=== PATIENT | male | born 1970 | race Caucasian/White ===

== ENCOUNTER 2016-09-23 10:17 | Inpatient (IN) | payer BC ==
[~2016-09-23] VITALS: Ht 175.3 cm; Wt 89.1 kg
[~2016-09-23 10:17] MED LIST: AMOX875T PO; FLUT1SPR9 EACH NARE
[2016-09-23 10:39] VITALS: BP 112/64; PULSE 51; RESP 16; TEMP 97.9; O2SAT 96
[2016-09-23 11:11] VITALS: BP 112/64; PULSE 51; RESP 16; TEMP 97.9; O2SAT 96
[2016-09-23] MEDS ORDERED: LORazepam 2 MG/ML VIAL IV PUSH ONE (11:15)
--- NOTE | 2016-09-23 11:31 | PD ---
HPI Chief Complaint: Anxiety Time Seen by Provider: 10:53 Travel History International Travel<30 days: No Contact w/Intl Traveler<30days: No Traveled to known affect area: No History of Present Illness HPI This is a 46-year-old male who has a history of anxiety who presents to the emergency department reporting that he has been having trouble controlling his emotions lately. 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 He feels like he is in a crisis. He says his body cramps up when he feels angry, and he's been having intermittent loose stools. He says he feels like he is going into panic episodes. 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 He has been smoking marijuana intermittently to treat the symptoms and it helps some. When asked if he is having thoughts of hurting other people or himself, he says he's worried because he gets very distracted and is concerned about his ability to drive. He also fell there a ladder the other day when he felt like he wasn't paying attention and injured his right leg. [facility] Past Medical History Anxiety: Yes Depression: Yes Diminished Hearing: No Influenza Vaccination: No Past Surgical History Tonsillectomy: Yes Other Surgery: Yes (Hernia) Social History Alcohol Use: Yes (Rarely) Tobacco Use: Yes (1/2 PPD) Substance Use: No Allergies-Medications (Allergen,Severity, Reaction): Coded Allergies: No Known Allergies (Unverified , 09/23/16) Reported Meds & Prescriptions Reported Meds & Active Scripts Active No Active Prescriptions or Reported Medications Review of Systems Except as stated in HPI: all other systems reviewed are Neg Physical Exam Narrative GENERAL:Well appearing, no acute distress SKIN: Ecchymoses on the right thigh HEAD: Atraumatic. Normocephalic. EYES: Pupils equal and round. No injection or drainage. ENT: Moist mucous membranes NECK: Trachea midline. CARDIOVASCULAR: Regular rate and rhythm. No murmur appreciated. RESPIRATORY: Clear to auscultation. Breath sounds equal bilaterally. GASTROINTESTINAL: Abdomen soft, non-tender, nondistended. MUSCULOSKELETAL: No obvious deformities. NEUROLOGICAL: Awake and alert. No obvious cranial nerve deficits. Moving all extremities. PSYCHIATRIC: Anxious appearing, preserved insight and judgment, no thoughts of hurting himself or others. Data Data Last Documented VS Vital Signs Date Time Temp Pulse Resp B/P Pulse Ox O2 Delivery O2 Flow Rate FiO2 09/23/16 12:53 52 16 99 Room Air 09/23/16 11:11 97.9 112/64 Orders Complete Blood Count With Diff (09/23/16 11:14) Comprehensive Metabolic Panel (09/23/16 11:14) Alcohol (Ethanol) (09/23/16 11:14) Drug Screen, Random Urine (09/23/16 11:14) ^ Insert Iv (09/23/16 11:14) Lorazepam Inj (Ativan Inj) (09/23/16 11:15) Thyroid Stimulating Hormone (09/23/16 12:03) Labs Laboratory Tests Test 09/23/16 11:50 White Blood Count 6.9 TH/MM3 Red Blood Count 4.24 MIL/MM3 Hemoglobin 14.2 GM/DL Hematocrit 39.6 % Mean Corpuscular Volume 93.5 FL Mean Corpuscular Hemoglobin 33.6 PG Mean Corpuscular Hemoglobin 35.9 % Concent Red Cell Distribution Width 12.4 % Platelet Count 195 TH/MM3 Mean Platelet Volume 8.3 FL Neutrophils (%) (Auto) 62.4 % Lymphocytes (%) (Auto) 24.1 % Monocytes (%) (Auto) 8.9 % Eosinophils (%) (Auto) 3.2 % Basophils (%) (Auto) 1.4 % Neutrophils # (Auto) 4.3 TH/MM3 Lymphocytes # (Auto) 1.7 TH/MM3 Monocytes # (Auto) 0.6 TH/MM3 Eosinophils # (Auto) 0.2 TH/MM3 Basophils # (Auto) 0.1 TH/MM3 CBC Comment AUTO DIFF Differential Comment AUTO DIFF CONFIRMED Platelet Estimate NORMAL Platelet Morphology Comment NORMAL Sodium Level 142 MEQ/L Potassium Level 4.0 MEQ/L Chloride Level 110 MEQ/L Carbon Dioxide Level 24.4 MEQ/L Anion Gap 8 MEQ/L Blood Urea Nitrogen 18 MG/DL Creatinine 1.20 MG/DL Estimat Glomerular Filtration 65 ML/MIN Rate Random Glucose 96 MG/DL Calcium Level 8.0 MG/DL Total Bilirubin 1.6 MG/DL Aspartate Amino Transf 17 U/L (AST/SGOT) Alanine Aminotransferase 40 U/L (ALT/SGPT) Alkaline Phosphatase 63 U/L Total Protein 6.6 GM/DL Albumin 3.7 GM/DL Ethyl Alcohol Level LESS THAN 3 MG/DL MDM Medical Decision Making Medical Screen Exam Complete: Yes Emergency Medical Condition: Yes Interpretation(s) Afebrile, bradycardic, normotensive No leukocytosis Total bilirubin is 1.6 otherwise labs are reassuring Differential Diagnosis Anxiety, panic attack, depression, bipolar disorder Narrative Course This is a 46-year-old male who presents to the emergency department with increasing anxiety describing himself as a crisis. He says he is having anger management issues and he feels like he is going to explode. He is requesting psychiatric evaluation. He says he used to be followed by a psychiatrist but had to discontinue this because he came down to [place] and wasn't able to be on medication in the setting of his profession. Labs are obtained which are reassuring. I had a conversation with the patient regarding whether or not he felt he was a harm to himself or others and he says he is not, he just really wants to be evaluated. I think is appropriate for voluntary psychiatric evaluation. Scripts No Active Prescriptions or Reported Meds Yue Arauz MD Sep 23, 2016 11:31
[2016-09-23 12:05] LABS: AUTOMATED NEUTROPHIL # 4.3 TH/MM3 (1.8-7.7); BASOPHIL # 0.1 TH/MM3 (0-0.2); BASOPHIL % 1.4 % (0.0-2.0); EOSINOPHIL # 0.2 TH/MM3 (0-0.4); EOSINOPHIL % 3.2 % (0.0-4.0); HEMATOCRIT 39.6 % (39.0-51.0); LYMPH % 24.1 % (9.0-44.0); LYMPHOCYTE # 1.7 TH/MM3 (1.0-4.8); MEAN CELL VOLUME 93.5 FL (80.0-100.0); MEAN CORPUSCULAR HEMOGLOBIN 33.6 PG (27.0-34.0); MEAN CORPUSCULAR HGB CONC 35.9 % (32.0-36.0); MONO % 8.9 % (0.0-8.0); NEUT % 62.4 % (16.0-70.0); PLATELET COUNT 195 TH/MM3 (150-450); RED BLOOD COUNT 4.24 MIL/MM3 (4.50-5.90); RED CELL DISTRIBUTION WIDTH 12.4 % (11.6-17.2); WHITE BLOOD COUNT 6.9 TH/MM3 (4.0-11.0)
[2016-09-23 12:09] LABS: HEMO FLAGS AUTO DIFF
[2016-09-23 12:12] LABS: CHLORIDE 110 MEQ/L (98-107); SODIUM (NA) 142 MEQ/L (136-145)
[2016-09-23 12:16] LABS: ANION GAP 8 MEQ/L (5-15); BICARBONATE 24.4 MEQ/L (21.0-32.0); BLOOD UREA NITROGEN 18 MG/DL (7-18)
[2016-09-23 12:19] LABS: ALT (GPT) 40 U/L (12-78); AST (GOT) 17 U/L (15-37); GLOMERULAR FILTRATION RATE 65 ML/MIN (>89)
[2016-09-23 12:21] LABS: TOTAL BILIRUBIN ADULT 1.6 MG/DL (0.2-1.0)
[2016-09-23 12:22] LABS: ALKALINE PHOSPHATASE 63 U/L (45-117)
[2016-09-23 12:49] LABS: PLATELET ESTIMATE SMEAR NORMAL (NORMAL); PLATELET MORPHOLOGY NORMAL (NORMAL)
[2016-09-23 12:50] LABS: SCAN/DIFF AUTO DIFF CONFIRMED
[2016-09-23 12:53] VITALS: PULSE 52; RESP 16; O2SAT 99
[2016-09-23 13:16] VITALS: PULSE 62; RESP 16; O2SAT 100
[2016-09-23] MEDS ORDERED: SODIUM CHLOR 0.9% 1000 ML INJ 1,000 ML IV ONE (14:00)
[2016-09-23 14:31] LABS: AMPHETAMINE, URINE NEG (NEG); COCAINE, URINE NEG (NEG)
[2016-09-23 14:38] LABS: BARBITURATES, URINE NEG (NEG)
[2016-09-23 15:31] VITALS: BP 123/69; PULSE 50; RESP 16; TEMP 97.8; O2SAT 99
--- NOTE | 2016-09-23 19:10 | PD ---
History of Present Illness Chief Complaint: Anxiety Time Seen by Provider: 18:00 Travel History International Travel<30 Days: No Contact w/Intl Traveler<30days: No Known affected area: No Legal Status Legal Status: Voluntary History of Present Illness: History of Present Illness HPI This is a 46-year-old male with a reported history of depression who presents to the emergency department on a voluntary basis requesting a psychiatric evaluation. Patient reports that he has been under a lot of stress at work and that " I fucking work 70 hours per week". He also reports that since January after the of his grandson he has been experiencing increase in symptoms including anxiety, loosing his focus and attention, having a lot of thoughts in his head " It feels like 10 voices talking at the same time", irritability, anger outbursts, poor sleep. He reports that the only thing that helps him is smoking marijuana which he has been doing on a daily basis. He attributes a fall he had yesterday to his high level of distraction. 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 . EMR is reviewed. No previous contact with [facility] psychiatry. Current toxicology is positive for cannabinoids. Patient is seen in J pod. Awake alert and oriented. His mood is irritable. Exhibits poor frustration tolerance. Speech is clear and normal tone and rate. there is no indication that he is responding to internal stimuli. No suicidal or homicidal ideation intent or plan. He makes it a point to tell me several times that he does not feel safe " driving out there the way I am feeling. I am either going to get hurt or hurt someone else". He is requesting to be placed back on medication at this time. he last took psychiatric medication 3 years ago including trazodone, Wellbutrin and an unknown antipsychotic medication. . PFSH Past Medical History Anxiety: Yes Depression: Yes Diminished Hearing: No Influenza Vaccination: No Past Surgical History Tonsillectomy: Yes Other Surgery: Yes (Hernia) Psychiatric History Psychiatric History Hx Psychiatric Treatment: [facility] [id number] in the [employer] for sucidal gesture by cutting his arm. He was hospitalized in 2007 after a reported overdose on trazodone and alcohol. History of Inpatient Treatment: Yes Guns or firearms in home: No Social History male. lives with . 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 Hx Alcohol Use: Yes (Rarely) Hx Tobacco Use: Yes (1/2 PPD) Hx Substance Use: Yes Substance Use Type: Marijuana Hx of Substance Use Treatment: No Family Psychiatric History None reported Allergies-Medications (Allergen,Severity, Reaction): Coded Allergies: No Known Allergies (Unverified , 09/23/16) Reported Meds & Prescriptions Reported Meds & Active Scripts Active No Active Prescriptions or Reported Medications Review of Systems Except as stated in HPI: all other systems reviewed are Neg Psychiatric: COMPLAINS OF: Anxiety, Depression Exam Alert: Yes [place]: Person (ox4) Mood: Angry Affect: Appropriate Speech: Clear, Logical Eye Contact: Indirect Memory Intact: Comment (no impairmetn) Hallucinations: Other (neagtive) Delusions: No Suicidal: Ideation (denies any) Homicidal: Ideation (deneis any) Insight/Judgement Poor. Poor MDM Medical Decision Making Medical Record Reviewed: Yes Assessment/Plan 46 year old male with history of depression , 2 previous suicide attempts, last treated 3 years ago who reports increase in symptoms since January of last year when his grandson . He is requesting to be placed back on medication and stresses to this senior technical writer that he feel unsafe to function in his work and is fearful he may harm himself or harm someone else as a result of his unsafe driving. at this time the patient is referred for inpatient hospitalization for further evaluation, initiation of medication. Orders Complete Blood Count With Diff (09/23/16 11:14) Comprehensive Metabolic Panel (09/23/16 11:14) Alcohol (Ethanol) (09/23/16 11:14) Drug Screen, Random Urine (09/23/16 11:14) ^ Insert Iv (09/23/16 11:14) Lorazepam Inj (Ativan Inj) (09/23/16 11:15) Thyroid Stimulating Hormone (09/23/16 12:03) Psych Screen (09/23/16 13:20) Sodium Chlor 0.9% 1000 Ml Inj (Ns 1000 M (09/23/16 14:00) Diet Regular Basic (09/23/16 Dinner) Results Vital Signs Date Time Temp Pulse Resp B/P Pulse Ox O2 Delivery O2 Flow Rate FiO2 09/23/16 15:31 97.8 50 16 123/69 99 Room Air 09/23/16 13:16 62 16 100 Room Air 09/23/16 12:53 52 16 99 Room Air 09/23/16 11:17 51 16 09/23/16 11:11 97.9 51 16 112/64 96 09/23/16 10:39 97.9 51 16 112/64 96 Room Air Laboratory Tests Test 09/23/16 09/23/16 11:50 14:00 White Blood Count 6.9 Red Blood Count 4.24 Hemoglobin 14.2 Hematocrit 39.6 Mean Corpuscular Volume 93.5 Mean Corpuscular Hemoglobin 33.6 Mean Corpuscular Hemoglobin 35.9 Concent Red Cell Distribution Width 12.4 Platelet Count 195 Mean Platelet Volume 8.3 Neutrophils (%) (Auto) 62.4 Lymphocytes (%) (Auto) 24.1 Monocytes (%) (Auto) 8.9 Eosinophils (%) (Auto) 3.2 Basophils (%) (Auto) 1.4 Neutrophils # (Auto) 4.3 Lymphocytes # (Auto) 1.7 Monocytes # (Auto) 0.6 Eosinophils # (Auto) 0.2 Basophils # (Auto) 0.1 CBC Comment AUTO DIFF Differential Comment AUTO DIFF CONFIRMED Platelet Estimate NORMAL Platelet Morphology Comment NORMAL Sodium Level 142 Potassium Level 4.0 Chloride Level 110 Carbon Dioxide Level 24.4 Anion Gap 8 Blood Urea Nitrogen 18 Creatinine 1.20 Estimat Glomerular Filtration 65 Rate Random Glucose 96 Calcium Level 8.0 Total Bilirubin 1.6 Aspartate Amino Transf 17 (AST/SGOT) Alanine Aminotransferase 40 (ALT/SGPT) Alkaline Phosphatase 63 Total Protein 6.6 Albumin 3.7 Thyroid Stimulating Hormone 0.744 3rd Gen Ethyl Alcohol Level LESS THAN 3 Urine Opiates Screen NEG Urine Barbiturates Screen NEG Urine Amphetamines Screen NEG Urine Benzodiazepines Screen NEG Urine Cocaine Screen NEG Urine Cannabinoids Screen POS Diagnosis Primary Impression: Depression Admitting Information Admitting Physician Requests: Admit (Dr. merida) Prescriptions No Active Prescriptions or Reported Meds Problem Qualifiers Primary Impression: Depression Qualified Code: F33.1 - Moderate episode of recurrent major depressive disorder Judith Ann [facility] Sep 23, 2016 19:10
[2016-09-23] MEDS ORDERED: MAGNESIUM HYDROXIDE SUSP 30 ML CUP PO PRN (19:15)
[2016-09-23] MEDS ORDERED: ALUMINUM/MAGNESIUM/SIMETH 30 ML CUP PO PRN (19:15)
[2016-09-23 21:15] VITALS: BP 123/62; PULSE 54; RESP 18; TEMP 97.9; O2SAT 99
[2016-09-23] MEDS ORDERED: LORazepam 1 MG TAB PO ONE (22:30)
[2016-09-24] MEDS: ACETAMINOPHEN 325 MG TAB PO PRN (05:20)
[2016-09-24 05:35] VITALS: BP 114/68; PULSE 55; RESP 18; TEMP 98; O2SAT 98
[2016-09-24 09:22] LABS: ANION GAP 6 MEQ/L (5-15); BLOOD UREA NITROGEN 15 MG/DL (7-18); CHLORIDE 110 MEQ/L (98-107); GLOMERULAR FILTRATION RATE 68 ML/MIN (>89); POTASSIUM 4.5 MEQ/L (3.5-5.1); SODIUM (NA) 142 MEQ/L (136-145)
[2016-09-24 09:26] LABS: HDL CHOLESTEROL 44.8 MG/DL (40.0-60.0); LDL CHOLESTEROL 68 MG/DL (0-99)
--- NOTE | 2016-09-24 11:38 | HHI.HP ---
Provisional Diagnosis Admission Date Sep 23, 2016 at 19:14 [place] I. 1. Major depressive disorder, recurrent, moderate 2. Other anxiety disorder 3. Cannabis use, rule out use disorder [place] II. Deferred [place] V. GAF is 40 presently Certification of Person's Competence To Provide Express and Informed Consent I have personally examined Roberto Maravilla , a person being served at [facility] on, Sep 24, 2016 11:38. Express and informed consent means consent voluntarily given in writing, by a competent person, after sufficient explanation and disclosure of the subject matter involved to enable the person to make a knowing and willful decision without any element of force, fraud, deceit, duress, or other form of constraint or coercion. This person is 18 years of age or older, is not now known to be incompetent to consent to treatment with a guardian advocate, and does not have a health care surrogate or proxy currently making medical treatment decisions. I have found this person to be one of the following: [x] Competent to provide express and informed consent, as defined above, for voluntary admission to this facility and is competent to provide express and informed consent for treatment. He/she has the consistent capacity to make well reasoned, willful, and knowing decisions concerning his or her medical or mental health treatment. The person fully and consistently understands the purpose of the admission for examination/placement and is fully capable of personally exercising all rights assured under [place] Incompetent to provide express and informed consent to voluntary admission, and this is incompetent to provide express and informed consent to treatment. The person must be transferred to involuntary status and a petition for a guardian advocate filed with the Circuit Court. [] Refusing to provide express and informed consent to voluntary admission but is competent to provide express and informed consent for treatment. The person must be discharged or transferred to involuntary status. Form shall be completed within 24 hours of a person's arrival at the receiving facility and filed in the clinical record of each person: 1. Admitted on a voluntary basis 2. Permitted to provide express and informed consent to his/her own treatment 3. Allowed to transfer from involuntary to voluntary status 4. Prior to permitting a person to consent to his or her own treatment after having been previously found incompetent to consent to treatment. History of Present Illness Capacity: Has Capacity HPI Mr. Maravilla is a 46-year-old male with a reported history of depression who presents on a voluntary basis for psychiatric evaluation. He was seen by the psychiatric nurse practitioner who recommended admission to the inpatient psychiatric unit. Reviewing the electronic medical record, I see no prior psychiatric contact within our system. Patient seen and examined with counselor and nurse. Chart reviewed. Case discussed with nursing staff on the inpatient unit. On my examination today, the patient presents as irritable and says that he has a "violent temper." He says that he has been "burning the candle at both ends. I work a 70 hour work week and have a horrible relationship [with his ]. 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 Mood is depressed. He is anhedonic and complaints of fatigue. Sleep is disturbed by anxious rumination, "the monkey brain voices in my head." Patient denies servando vinay audiovisual hallucinations. I can elicit no current or prior hypomanic or manic symptoms. He denies any suicidal ideation or homicidal ideation. Remainder of the psychiatric ROS is negative. Complains of abrasion on R thigh following a fall from a ladder and chronic groin itch. Past psychiatric history: The patient reports that he was previously diagnosed with depression. He is not currently under the care of a psychiatrist nor does he take any psychotropic medications. He was reportedly previously treated by a Dr. Meza in [place], [place] for 9 years and refers us to her for information regarding previous medication trials as he cannot recall what he has taken in the past. He thinks Depakote may have caused unacceptable weight gain, though. He was admitted psychiatrically for the only time in 2007 following a trazodone and mixed hypnotic OD and subsequently attended an IOP, and these were his only admission and suicide attempt, respectively. 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 Review of Systems Except as stated in HPI: all other systems reviewed are Neg Past Psych History Psychological trauma history Patient denies any history of physical, verbal or sexual abuse. He does note that he lost his mother and father 4 years ago within a month of each other and his grandson before he was a month old last February. Violence risk - others (6 mos) Lower imminent risk. Denies homicidal ideation. No known history of violence. No evidence of a psychotic process that might predispose for risk for violence. Violence risk - self (6 mos) Indeterminate. Patient denies suicidal ideation but reports ongoing depressive symptoms. He does have a history of suicide attempts and a family history of suicide. Substance Abuse History Drugs/Alcohol past 12 months Patient reports that he uses cannabis occasionally. He stopped smoking cigarettes in May. He denies any other substance use. Past Family Social History Coded Allergies: No Known Allergies (Unverified , 09/23/16) Past Medical History Includes a history of chronic groin itch. He says that he has brought this issue up to his primary care doctor and has tried several [id number] and prescription medications for this problem without success. No Active Prescriptions or Reported Meds Current Medications Medications (Trade) Dose Ordered Sig/Jud Route Start Time Stop Time Status Last Admin (Tylenol) 650 mg Q4H PRN PO 09/23/16 19:15 09/24/16 05:20 (Milk Of Magnesia Liq) 30 ml DAILY PRN PO 09/23/16 19:15 (Mag-Al Plus Susp Liq) 30 ml Q6H PRN PO 09/23/16 19:15 Family History Patient reports a family history of depression and alcoholism. He reports that several cousins and an uncle have attempted/completed suicide. Social History Patient reports that he is from [place]. 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 He is previously and has children from a previous marriage. He has been with his long-term girlfriend for 13 years. He notes that this relationship is somewhat chacho and they have been in marriage counseling. He has a 9 and 11-year-old child with his girlfriend. He is high school educated. 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 He did not see any combat. He denies any legal history. He denies any access to guns or firearms. He is an agnostic. Patient's Strengths (min. 2) In a monitored setting. Verbally fluent. Physical Exam Physical examination completed by ED provider. On my examination today, the patient appears to be in no acute physical distress. No abnormal motor movements noted. Labs and vital signs reviewed: Vital Signs Vital Signs Date Time Temp Pulse Resp B/P Pulse Ox O2 Delivery O2 Flow Rate FiO2 09/24/16 06:20 16 09/24/16 05:35 98.0 55 114/68 98 09/23/16 15:31 Room Air Lab Results Item Value Date Time White Blood Count 6.9 TH/MM3 09/23/16 1150 Hemoglobin 14.2 GM/DL 09/23/16 1150 Platelet Count 195 TH/MM3 09/23/16 1150 Sodium Level 142 MEQ/L 09/24/16 0805 Potassium Level 4.5 MEQ/L 09/24/16 0805 Chloride Level 110 MEQ/L H 09/24/16 0805 Carbon Dioxide Level 26.0 MEQ/L 09/24/16 0805 Blood Urea Nitrogen 15 MG/DL 09/24/16 0805 Creatinine 1.15 MG/DL 09/24/16 0805 Random Glucose 89 MG/DL 09/24/16 0805 Aspartate Amino Transf (AST/SGOT) 17 U/L 09/23/16 1150 Alanine Aminotransferase (ALT/SGPT) 40 U/L 09/23/16 1150 Alkaline Phosphatase 63 U/L 09/23/16 1150 Thyroid Stimulating Hormone 3rd Gen 0.744 uIU/ML 09/23/16 1150 Urine Cannabinoids Screen POS H 09/23/16 1400 Ethyl Alcohol Level LESS THAN 3 MG/DL 09/23/16 1150 Mental Status Examination Patient is casually dressed. He is well groomed. He is awake and alert and oriented 3. No motor abnormalities noted. Speech is within normal limits for rate, tone and volume. Language and fund of knowledge seemed average. Memory is intact on clinical exam. Focus and concentration seem intact on clinical exam. Mood is depressed and affect is somewhat irritable and dysphoric. Thought process linear. No loosening of associations. No evident delusions. Denies audiovisual hallucinations. Denies suicidal or homicidal ideation. Insight and judgment are fair. Assessment & Plan Problem List: (1) Major depressive disorder, recurrent, moderate ICD Code: F33.1 (2) Other specified anxiety disorders ICD Code: F41.8 (3) Use of cannabis ICD Code: F12.90 Assessment & Plan This is a 46-year-old male with psychiatric history as detailed above who presents on a voluntary basis for psychiatric evaluation. Patient describes to me symptoms consistent with a major depressive episode of moderate degree, and the patient does report a history of major depression. He also reports several symptoms consistent with an anxiety disorder. His TSH is within normal limits. Patient reports an extensive previous treatment history although he is not sure of his medication trials in the past. Patient would likely do well with pharmacologic treatment focused on mood and anxiety to be started on the inpatient unit with outpatient referral for psychotherapy on discharge. Patient requires psychiatric hospitalization at this time for observation and stabilization. Admit inpatient. Voluntary status. Request treatment records from patient's psychiatrist in [place] to get a better sense of what medications he has tried. 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 In the meantime I will provide the patient with Ativan as needed for anxiety, Cogentin as needed for EPS and trazodone as needed for sleep. Vitals every shift. Counselor to see. Disposition planning. Estimated length of stay: 5-7 days. Discharge Planning Pending psychiatric stabilization Request HC Surrog/Guard Advoc?: No Filemon Fernandez MD Sep 24, 2016 11:38
[2016-09-24] MEDS ORDERED: LORazepam 2 MG/ML VIAL IM PRN (11:45)
[2016-09-24] MEDS ORDERED: BENZTROPINE MESYLATE 2 MG/2 ML VIAL IM PRN (11:45)
[2016-09-24] MEDS ORDERED: BENZTROPINE MESYLATE 1 MG TAB PO PRN (11:45)
[2016-09-24] MEDS ORDERED: LORazepam 1 MG TAB PO PRN (11:45)
[2016-09-24 17:14] LABS: HEMOGLOBIN A1a 0.6 %; HEMOGLOBIN A1b 0.6 %; HEMOGLOBIN F 0.6 %; HEMOGLOBIN LA1C 1.7 %
[2016-09-24] MEDS: BACITRACIN TOP OINT 15 GM TUBE TOPICAL SCH (21:29)
[2016-09-24] MEDS: traZODone HCL 50 MG TAB PO PRN (21:30)
[2016-09-24 22:02] VITALS: BP 121/64; PULSE 64; RESP 18; TEMP 98.4; O2SAT 98
[2016-09-25 06:20] VITALS: BP 106/60; PULSE 64; RESP 18; TEMP 97.8; O2SAT 98
[2016-09-25] MEDS: BACITRACIN TOP OINT 15 GM TUBE TOPICAL SCH ×2 (08:39→20:44)
[2016-09-25] MEDS: ACETAMINOPHEN 325 MG TAB PO PRN (08:45)
--- NOTE | 2016-09-25 14:07 | HHI.PYPN ---
Subjective Remarks Patient seen and examined. Chart reviewed. Case discussed with nursing staff. On my examination today, the patient reports that he remains fairly anxious and irritable. He does note that he feels more comfortable in the lower stress environment of the inpatient milieu. 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 No SI today. Had a visit from but is not sure if he wants to repeat this as it agitated him, he says. Records were requested from patient's previous outpatient psychiatrist, but we have received no reply yet. I also did consult the list of approved medications from the [employer] website. It appears that most non-controlled substances are acceptable except for Depakote for seizures. I did discuss patient's pharmacologic options with him in great detail for management of anxiety and dysphoria. We review the several classes of agents, including but not limited to SSRIs, SNRIs, Remeron, Wellbutrin, etc. discussing the risks and benefits of each. I also answer patient's specific questions regarding the risk of emergent suicidality associated with antidepressant treatment. After a lengthy discussion of the risks and benefits, we settle on a trial of Lexapro. Review of Systems Except as stated in HPI: all other systems reviewed are Neg Objective Alert: Yes [place]: Person (O x 3) Mood: Other (irritable) Affect: Restricted (dysphoric) Memory Intact: Comment (Intact on clinical exam) Hallucinations: Other (No AVH) Delusions: No Delusion Type: Other (No delusions) Suicidal: Ideation (No SI) Homicidal: Ideation (No HI) Insight/Judgment Fair Remarks No motor abnormalities noted. Thought process linear. Grooming and hygiene good. Labs Labs reviewed. Vitals/IOs Vital Signs Date Time Temp Pulse Resp B/P Pulse Ox O2 Delivery O2 Flow Rate FiO2 09/25/16 06:20 97.8 64 18 106/60 98 09/23/16 15:31 Room Air Intake and Output 09/24/16 09/24/16 09/24/16 07:59 15:59 23:59 Intake Total 360 ml Balance 360 ml Assessment & Plan Problem List: (1) Major depressive disorder, recurrent, moderate ICD Code: F33.1 (2) Other specified anxiety disorders ICD Code: F41.8 (3) Use of cannabis ICD Code: F12.90 Assessment & Plan Initiate Lexapro 10 mg daily for mood and anxiety. Plan to titrate this agent to 20 mg over the weekend. Continue to monitor on the inpatient unit. Continue other medications and care as ordered. Justification for Cont. Inpt. Planned medication changes. Monitoring for impairments in safety. Discharge Planning Anticipate discharge beginning of next week, probably Thursday. Request HC Surrog/Guard Advoc?: No Filemon Fernandez MD Sep 25, 2016 14:07
[2016-09-25] MEDS: ESCITALOPRAM OXALATE 10 MG TAB PO SCH (15:00)
[2016-09-25 19:17] VITALS: BP 130/73; PULSE 52; RESP 17; TEMP 97.9; O2SAT 97
[2016-09-25] MEDS: traZODone HCL 50 MG TAB PO PRN (21:19)
[2016-09-26 06:01] VITALS: BP 105/61; PULSE 55; RESP 16; TEMP 98; O2SAT 97
[2016-09-26] MEDS: BACITRACIN TOP OINT 15 GM TUBE TOPICAL SCH ×2 (09:00→20:42)
[2016-09-26] MEDS: ACETAMINOPHEN 325 MG TAB PO PRN (09:05)
[2016-09-26] MEDS: ESCITALOPRAM OXALATE 10 MG TAB PO SCH (09:05)
[2016-09-26] MEDS ORDERED: PADIMATE (CHAPSTICK) 4.5 GM TUBE TOPICAL PRN (09:45)
--- NOTE | 2016-09-26 12:17 | HHI.PYPN ---
Subjective Remarks Patient seen and examined with counselor and nurse. Chart reviewed. Case discussed with nursing staff. On my examination today, the patient presents as still somewhat dysphoric and irritable. Ongoing anxiety. Continues to feel somewhat stressed out by work and family issues. 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 No physical complaints. No side effects from medications. Review of Systems Except as stated in HPI: all other systems reviewed are Neg Objective Alert: Yes [place]: Person, Place, Date, Situation Mood: Other (remains somewhat irritable) Affect: Restricted (remains somewhat dysphoric) Memory Intact: Comment (Intact on clinical exam) Hallucinations: Other (no hallucinations) Delusions: No Delusion Type: Other (no delusional material) Suicidal: Ideation (No SI) Homicidal: Ideation (No HI) Insight/Judgment Poor Remarks No motor abnormalities noted. Thought process linear. Speech within normal limits for rate, tone and volume. Labs Labs reviewed. Vitals/IOs Vital Signs Date Time Temp Pulse Resp B/P Pulse Ox O2 Delivery O2 Flow Rate FiO2 09/26/16 06:01 98.0 55 16 105/61 97 09/23/16 15:31 Room Air Assessment & Plan Problem List: (1) Major depressive disorder, recurrent, moderate ICD Code: F33.1 (2) Other specified anxiety disorders ICD Code: F41.8 (3) Use of cannabis ICD Code: F12.90 Assessment & Plan Titrate Lexapro over the weekend to 20 mg/day. Continue to monitor on the inpatient unit. Continue other medications and care as ordered. Justification for Cont. Inpt. Medication changes in process. Risk for decompensation pending psychiatric stabilization. Discharge Planning Anticipate discharge beginning of next week, likely Thursday. Request HC Surrog/Guard Advoc?: No Filemon Fernandez MD Sep 26, 2016 12:17
[2016-09-26 18:26] VITALS: BP 121/57; PULSE 48; RESP 18; TEMP 98.7; O2SAT 95
[2016-09-26] MEDS: traZODone HCL 50 MG TAB PO PRN (20:42)
[2016-09-27 05:42] VITALS: BP 112/57; PULSE 46; RESP 18; TEMP 97.9; O2SAT 97
[2016-09-27] MEDS: ESCITALOPRAM OXALATE 10 MG TAB PO SCH (08:52)
[2016-09-27] MEDS: BACITRACIN TOP OINT 15 GM TUBE TOPICAL SCH ×2 (08:52→21:11)
[2016-09-27] MEDS: ACETAMINOPHEN 325 MG TAB PO PRN ×2 (08:54→21:11)
--- NOTE | 2016-09-27 12:20 | HHI.PYPN ---
Subjective Remarks Patient was seen and case discussed with nursing. Patient describes his mood today is "not terrible." He has had visits from his but describes a "tension." Discussed the need for outpatient therapy on discharge. Patient says he has "a lot of things to get off his chest." Sleeping well. Denies suicidal ideation intent or plan Objective Alert: Yes [place]: Person, Place, Date, Situation Mood: Calm Affect: Blunted Memory Intact: Comment (Intact on clinical exam) Hallucinations: Other (no hallucinations) Delusions: No Delusion Type: Other (no delusional material) Suicidal: Ideation (No SI) Homicidal: Ideation (No HI) Insight/Judgment Fair Vitals/IOs Vital Signs Date Time Temp Pulse Resp B/P Pulse Ox O2 Delivery O2 Flow Rate FiO2 09/27/16 05:42 97.9 46 18 112/57 97 09/23/16 15:31 Room Air Assessment & Plan Problem List: (1) Major depressive disorder, recurrent, moderate ICD Code: F33.1 (2) Other specified anxiety disorders ICD Code: F41.8 (3) Use of cannabis ICD Code: F12.90 Assessment & Plan Continue current treatment plan Justification for Cont. Inpt. Patient will decompensate in a less restrictive setting Request HC Surrog/Guard Advoc?: No Charlie Hicks DO Sep 27, 2016 12:20
[2016-09-27 18:09] VITALS: BP 141/65; PULSE 91; RESP 18; TEMP 98.4; O2SAT 96
[2016-09-27] MEDS: traZODone HCL 50 MG TAB PO PRN (21:10)
[2016-09-28 06:19] VITALS: BP 99/63; PULSE 50; RESP 18; TEMP 98.1; O2SAT 100
[2016-09-28] MEDS: BACITRACIN TOP OINT 15 GM TUBE TOPICAL SCH ×2 (09:00→20:21)
[2016-09-28] MEDS: ESCITALOPRAM OXALATE 10 MG TAB PO SCH (09:23)
[2016-09-28] MEDS: ACETAMINOPHEN 325 MG TAB PO PRN (10:33)
--- NOTE | 2016-09-28 14:59 | HHI.PYPN ---
Subjective Remarks Patient was seen and case discussed with nursing. Patient is perseverative on his right leg appears to have bruising. Says her some pain with range of motion and asking for an x-ray and opiates. Says he fell through the rungs of the latter. Mood today is "irritable because of the pain." Patient refuses to go to groups. Compliant with medications Objective Alert: Yes [place]: Person, Place, Date, Situation Mood: Calm Affect: Blunted Memory Intact: Comment (Intact on clinical exam) Hallucinations: Other (no hallucinations) Delusions: No Delusion Type: Other (no delusional material) Suicidal: Ideation (No SI) Homicidal: Ideation (No HI) Insight/Judgment Fair Vitals/IOs Vital Signs Date Time Temp Pulse Resp B/P Pulse Ox O2 Delivery O2 Flow Rate FiO2 09/28/16 06:19 98.1 50 18 99/63 100 Assessment & Plan Problem List: (1) Major depressive disorder, recurrent, moderate ICD Code: F33.1 (2) Other specified anxiety disorders ICD Code: F41.8 (3) Use of cannabis ICD Code: F12.90 Assessment & Plan X-ray right knee, medical consult Justification for Cont. Inpt. Patient will decompensate in a less restrictive setting Request HC Surrog/Guard Advoc?: No Charlie Hicks DO Sep 28, 2016 14:59
--- NOTE | 2016-09-28 16:12 | RADRPT ---
EXAM DATE/TIME: 09/28/2016 15:55 [facility] COMPARISON: No previous studies available for comparison. INDICATIONS : Fall. Right knee pain proximal to knee. MEDICAL HISTORY : None. SURGICAL HISTORY : None. ENCOUNTER: Initial ACUITY: 1 day PAIN SCORE: 0/10 LOCATION: Right knee FINDINGS: Four view examination of the right knee demonstrates no evidence of fracture or dislocation. Bony mi neralization is normal. The articular surfaces are intact. The suprapatellar soft tissues have a no rmal configuration. CONCLUSION: Intact right knee. Riki Tavarez MD on September 28, 2016 at 16:09 Board Certified Radiologist. This report was verified electronically.
--- NOTE | 2016-09-28 17:04 | PD.CONS ---
[facility] By [facility] Physician No Primary Care Physician Diagnoses: (1) Hematoma of right thigh History of Present Illness Mr. Pillai is a 46-year-old male. He was admitted to the inpatient psychiatry Department secondary to depression. He reports that prior to admission he had a fall at home and his leg slipped or bladder. He broke his fall retained his weight on his thigh with his leg in between the rungs. His complaint is increasing right thigh pain with worsening bruising. X-ray of the right knee does not show any fracture. Hematoma is present based on exam. There does not appear to be active bleed and no signs of symptoms of compartment syndrome. Review of Systems Constitutional: DENIES: Diaphoretic episodes, Fever, Weight loss, Chills Eyes: DENIES: Blurred vision, Diplopia Ears, nose, mouth, throat: DENIES: Hearing loss, Vertigo, Nasal discharge Respiratory: DENIES: Apneas, Cough, Wheezing, Hemoptysis, Shortness of breath Cardiovascular: DENIES: Palpitations, Syncope Gastrointestinal: DENIES: Abdominal pain, Black stools, Bloody stools Musculoskeletal: COMPLAINS OF: Muscle aches, Stiffness Integumentary: DENIES: Abnormal pigmentation Hematologic/lymphatic: DENIES: Bruising Immunologic/allergic: DENIES: Eczema Neurologic: DENIES: Abnormal gait Psychiatric: COMPLAINS OF: Depression, DENIES: Anxiety, Confusion Past Family Social History Allergies: Coded Allergies: No Known Allergies (Unverified , 09/23/16) Past Medical History History of right Achilles tendon injury Past Surgical History Tonsillectomy Right cheek cyst surgery Right inguinal hernia repair Reported Medications Reported Meds & Active Scripts Active No Active Prescriptions or Reported Medications Active Ordered Medications Administered Medications Medications (Trade) Dose Ordered Sig/Jud Route PRN Reason Start Time Stop Time Status Last Admin Dose Admin Acetaminophen (Tylenol) 650 mg Q4H PRN PO Pain 1-5 or Temp >101F 09/23/16 19:15 09/28/16 10:33 Trazodone HCl (Desyrel) 50 mg HS PRN PO INSOMNIA 09/24/16 11:45 09/27/16 21:10 Bacitracin (Baciguent Oint) 1 applic Q12HR TOPICAL 09/24/16 21:00 09/28/16 09:00 Padimate O ([place]) 1 applic UNSCH PRN TOPICAL CHAPPED LIPS 09/26/16 09:45 09/26/16 21:17 Escitalopram Oxalate (Lexapro) 10 mg Taper DAILY PO 09/27/16 09:00 10/09/16 08:59 09/28/16 09:23 Family History Cancer in mother and maternal grandmother CVA in father [place] in paternal grandfather Social History History of smoking but patient quit smoking several months ago No alcohol abuse No drug abuse (patient has used cannabis) Physical Exam Vital Signs Vital Signs Date Time Temp Pulse Resp B/P Pulse Ox O2 Delivery O2 Flow Rate FiO2 09/28/16 06:19 98.1 50 18 99/63 100 09/27/16 18:09 98.4 91 18 141/65 96 Physical Exam GENERAL: NAD, A&Ox3 HEAD: Normocephalic. NECK: Supple, trachea midline. No lymphadenopathy. EYES: No scleral icterus. No injection or drainage. CARDIOVASCULAR: Regular rate and rhythm without murmurs, gallops, or rubs. RESPIRATORY: Breath sounds equal bilaterally. No accessory muscle use. GASTROINTESTINAL: Abdomen soft, non-tender, nondistended. MUSCULOSKELETAL: No cyanosis, or edema. Right thigh has a palpable hematoma at the lateral/posteior angle that is about 10cm in length and 3cm in diameter. Bruising is present at lateral and medial aspects of the thigh. Passive and Active ROM are intact. Ambulation improves with motion (stiff on rising). Lateral hamstring is nontender and intact. NEURO: No focal neurological deficitis. Result Diagram: 09/24/16 0805 Imaging Last Impressions Knee X-Ray 09/28/16 0000 Signed Impressions: Service Date/Time: Wednesday, September 28, 2016 15:55 - CONCLUSION: Intact right knee. Riki Tavarez MD Assessment and Plan Problem List: (1) Hematoma of right thigh ICD Code: S70.11XA Status: Acute (2) Depression ICD Code: F32.9 Status: Acute Assessment and Plan Assessment and plan 46-year-old male admitted for depression with recent injury of the right thigh Right thigh hematoma status post trauma Start tramadol as needed for pain and continue this for the next 5 days as needed Aspirin and NSAIDs are avoided both because of risk of bleed and because patient has a history of dyspepsia from these treatments Patient is encouraged to continue to ambulate No fractures based on x-ray No risk of compartment syndrome at this point Hematoma feels solid and I'm not concerned for any high-volume active bleed based on the size and time since injury Walking is fine patient is encouraged not to do any intense exercises with that leg for one week. Depression Management is per psychiatry No further medical evaluation or monitoring is needed at this time Bruising may worsen over the next several days and will take 2-3 weeks to resolve Hematoma may take 2-3 months to resolve, but should not be painful for the duration Medical service will sign off at this point Problem Qualifiers (1) Depression: Qualified Code: F33.1 - Moderate episode of recurrent major depressive disorder Andres Mtz MD Sep 28, 2016 5:04 pm
[2016-09-28] MEDS: traMADol HCL 50 MG TAB PO PRN (17:17)
[2016-09-28 18:08] VITALS: BP 118/59; PULSE 48; RESP 18; TEMP 98.9; O2SAT 98
[2016-09-28] MEDS: traZODone HCL 50 MG TAB PO PRN (22:08)
[2016-09-29 06:15] VITALS: BP 103/61; PULSE 50; RESP 16; TEMP 97.4; O2SAT 100
[2016-09-29] MEDS: ESCITALOPRAM OXALATE 10 MG TAB PO SCH (08:54)
[2016-09-29] MEDS: traMADol HCL 50 MG TAB PO PRN (08:54)
[2016-09-29] MEDS: BACITRACIN TOP OINT 15 GM TUBE TOPICAL SCH (09:00)
[2016-09-29] MEDS ORDERED: DULC5TAB PO (11:06)
[2016-09-29] MEDS ORDERED: LEXA20TA PO (11:06)
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
[2016-09-29] MEDS ORDERED: BISACODYL EC 5 MG TABEC PO ONE (11:15)
== END 2016-09-29 15:55 | disposition home or self-care (01) | DRG 885 ==
LOC: PHED 10:17 → NEDA 19:14 → H260 21:07
PROVIDERS: ADMIT Psychiatry & Neurology Psychiatry; ATTEND Psychiatry & Neurology Psychiatry
DX: F33.1 Major depressive disorder, recurrent, moderate (principal); F41.9 Anxiety disorder, unspecified; S70.311A Abrasion, right thigh, initial encounter; W11.XXXA Fall on and from ladder, initial encounter; Y93.9 Activity, unspecified; Y99.9 Unspecified external cause status; Z91.5 Personal history of self-harm; Z81.8 Family history of other mental and behavioral disorders; Z87.891 Personal history of nicotine dependence; F12.90 Cannabis use, unspecified, uncomplicated; Z81.1 Family history of alcohol abuse and dependence; Y92.009 Unspecified place in unspecified non-institutional (private) residence as the place of occurrence of the external cause; K59.00 Constipation, unspecified
CPT/HCPCS: 73564; 80048; 80053; 80061; 80307; 83036; 84443; 85025; 96361; 96374; J2060; J7030

== ENCOUNTER 2017-03-23 17:20 | Emergency (ER) | payer BC ==
[~2017-03-23 17:20] MED LIST changes: -AMOX875T PO; +DULC5TAB PO; -FLUT1SPR9 EACH NARE; +LEXA20TA PO
[2017-03-23 17:21] VITALS: BP 121/82; PULSE 55; RESP 18; TEMP 97.6; O2SAT 96
[2017-03-23] MEDS ORDERED: DESV50TA2 (17:48)
[2017-03-23] MEDS ORDERED: LORA0.5T PO (17:48)
[2017-03-23] MEDS ORDERED: OXCA150T PO (17:48)
[2017-03-23] MEDS ORDERED: BUSP10TA PO (17:48)
--- NOTE | 2017-03-23 17:56 | PD ---
HPI Chief Complaint: Anxiety Time Seen by Provider: 17:42 Travel History International Travel<30 days: No Contact w/Intl Traveler<30days: No Traveled to known affect area: No History of Present Illness HPI The patient is a 46-year-old male who presents to the emergency department for anxiety and panic attacks. The patient has a history of recent anxiety and panic attacks, has been seen by a physician placed on multiple medications for his anxiety and panic attacks including Pristiq, trazodone, Vistaril, Ativan, and BuSpar. 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 The patient went to [facility] tried to obtain paperwork that stated he had short term disability, because he states he will be fired on Thursday if he does not provide paperwork. He does have an appointment on Thursday with the psychiatrist, Dr. Hammonds. The patient denies any acute changes in his anxiety or panic attacks except for the fact he may lose his job. He denies any suicidal or homicidal ideation. Symptoms are mild to moderate, exacerbated by history of anxiety and panic attacks, and alleviated with medications. PFSH Past Medical History Arthritis: No Asthma: No Anxiety: Yes Depression: Yes Cancer: No Cardiovascular Problems: No High Cholesterol: No Chest Pain: No Congestive Heart Failure: No COPD: No Cerebrovascular Accident: No Diabetes: No Diminished Hearing: No Endocrine: Yes GERD: No Genitourinary: No Hiatal Hernia: No Immune Disorder: No Kidney Stones: No Musculoskeletal: No Neurologic: No Psychiatric: Yes Respiratory: No Migraines: No Renal Failure: No Sleep Apnea: No Thyroid Disease: No Ulcer: No Past Surgical History Abdominal Surgery: No Cardiac Surgery: No Ear Surgery: No Endocrine Surgery: No Eye Surgery: No Genitourinary Surgery: No Gynecologic Surgery: No Oral Surgery: No Thoracic Surgery: No Tonsillectomy: Yes Other Surgery: Yes (Hernia) Social History Alcohol Use: Yes (Rarely) Tobacco Use: Yes (1/2 PPD) Substance Use: Yes (marijuanaa few times a week) Allergies-Medications (Allergen,Severity, Reaction): Coded Allergies: No Known Allergies (Unverified , 09/23/16) Reported Meds & Prescriptions Reported Meds & Active Scripts Active Reported Lorazepam 0.5 Mg Tab 0.5 Mg PO Q6H PRN Buspirone (Buspirone HCl) 10 Mg Tab 10 Mg PO DAILY Oxcarbazepine 150 Mg Tab 150 Mg PO DAILY Desvenlafaxine ER (Desvenlafaxine) 50 Mg Tab.er.24h 50 Mg DAILY Review of Systems Except as stated in HPI: all other systems reviewed are Neg Psychiatric: Positive: Anxiety, Other (panic attacks ) Physical Exam Narrative GENERAL: Awake, alert, pleasant 46-year-old male who appears his stated age and is in no acute respiratory distress. SKIN: Focused skin assessment warm/dry. HEAD: Atraumatic. Normocephalic. EYES: No injection or drainage. CARDIOVASCULAR: Regular rate and rhythm. No murmur appreciated. RESPIRATORY: No accessory muscle use. Clear to auscultation. Breath sounds equal bilaterally. MUSCULOSKELETAL: No obvious deformities. No clubbing. No cyanosis. No edema. NEUROLOGICAL: Awake and alert. No obvious cranial nerve deficits. Motor grossly within normal limits. Normal speech. Nonfocal. PSYCHIATRIC: Appropriate mood and affect; insight and judgment normal. Data Data Last Documented VS Vital Signs Date Time Temp Pulse Resp B/P (MAP) Pulse Ox O2 Delivery O2 Flow Rate FiO2 03/23/17 17:21 97.6 55 18 121/82 (95) 96 MDM Medical Decision Making Medical Screen Exam Complete: Yes Emergency Medical Condition: Yes Medical Record Reviewed: Yes Differential Diagnosis Differential diagnoses includes anxiety, panic attacks, generalized anxiety disorder, depressive disorder NOS, medication side effect. Narrative Course The patient is medically cleared to be evaluated by psychiatry on Thursday by Dr. Hammonds. There is no acute indication for [place] act, he will be given a note for work for 5 days off until he can be seen by psychiatry for evaluation of proper paperwork for his job. Patient stable for outpatient follow-up. Diagnosis Primary Impression: Other specified anxiety disorders Patient Instructions: General Instructions Additional Instructions: Follow-up with Dr. Hammonds on Thursday as scheduled. Work excuse for 5 days. Return if symptoms worsen or progress. No driving on medications if they make you tired. Med/Other Pt SpecificInfo: No Change to Meds Disposition: 01 DISCHARGE HOME Condition: Stable Fede Alonso MD Mar 23, 2017 17:56
[2017-03-27] MEDS ORDERED: LORA-474 PO (16:09)
[2017-03-27] MEDS ORDERED: PROZ20CA11 PO (16:09)
[2017-04-06] MEDS ORDERED: BUPR150XL PO (15:18)
[2017-04-06] MEDS ORDERED: WELLTAB39 PO (15:18)
== END 2017-03-23 18:34 | disposition home or self-care (01) ==
LOC: NEPD 17:20
DX: F41.9 Anxiety disorder, unspecified (principal); F41.0 Panic disorder [episodic paroxysmal anxiety]; F32.9 Major depressive disorder, single episode, unspecified; F17.200 Nicotine dependence, unspecified, uncomplicated; Z79.899 Other long term (current) drug therapy
CPT/HCPCS: 99283

== ENCOUNTER 2017-04-22 15:28 | Inpatient (IN) | payer BC ==
[~2017-04-22] VITALS: Ht 177.8 cm; Wt 93.0 kg
[~2017-04-22 15:28] MED LIST changes: +BUPR150XL PO; +DESV50TA2; -DULC5TAB PO; -LEXA20TA PO; +LORA-474 PO; +OXCA150T PO; +PROZ20CA11 PO; +WELLTAB39 PO
[2017-04-22 15:31] VITALS: BP 114/63; PULSE 65; RESP 16; TEMP 99.1; O2SAT 96
[2017-04-22 16:55] VITALS: BP 112/67; PULSE 58; RESP 18; TEMP 97.6; O2SAT 99
[2017-04-22] MEDS ORDERED: TRAZ50TA12 PO (17:07)
--- NOTE | 2017-04-22 17:24 | PD ---
HPI Chief Complaint: Psychiatric Symptoms Time Seen by Provider: 15:46 Travel History International Travel<30 days: No Contact w/Intl Traveler<30days: No Traveled to known affect area: No History of Present Illness HPI 46-year-old male presents the emergency Department voluntarily for suicidal ideation. Patient is well-known here from previous visits. He denies any medical issues other than some right jaw pain over the past couple of days. He denies fever, chills, or sore throat. Patient states it is worse when he is chewing or yawning. He has no other medical complaints. He has no known drug allergies. PFSH Past Medical History Arthritis: No Asthma: No Bipolar Disorder: Yes Anxiety: Yes Depression: Yes Cancer: No Cardiovascular Problems: No High Cholesterol: No Chest Pain: No Congestive Heart Failure: No COPD: No Cerebrovascular Accident: No Diabetes: No Diminished Hearing: No Endocrine: Yes Gastrointestinal Disorders: No GERD: No Genitourinary: No Headaches: No Hiatal Hernia: No Hypertension: No Immune Disorder: No Implanted Vascular Access Dvce: No Kidney Stones: No Musculoskeletal: No Neurologic: No Psychiatric: Yes (PTSD, depression, anxiety) Respiratory: No Migraines: No Renal Failure: No Sleep Apnea: No Thyroid Disease: No Ulcer: No Tetanus Vaccination: Unknown Past Surgical History Surgical History: No Previous Surgery Abdominal Surgery: No Cardiac Surgery: No Ear Surgery: No Endocrine Surgery: No Eye Surgery: No Genitourinary Surgery: No Gynecologic Surgery: No Neurologic Surgery: No Oral Surgery: No Thoracic Surgery: No Tonsillectomy: Yes Other Surgery: Yes (Hernia) Social History Alcohol Use: Yes (rarely) Tobacco Use: No Substance Use: Yes ([facility] approx. 1 month ago) Allergies-Medications (Allergen,Severity, Reaction): Coded Allergies: No Known Allergies (Unverified Allergy, Unknown, 04/22/17) Reported Meds & Prescriptions Reported Meds & Active Scripts Active Wellbutrin Xl 24 HR (Bupropion HCl) 300 Mg Tab 300 Mg PO DAILY Ativan (Lorazepam) 1 Mg Tab 1 Mg PO Q8H PRN Prozac (Fluoxetine HCl) 20 Mg Cap 20 Mg PO DAILY Reported Trazodone (Trazodone HCl) 50 Mg Tab 50 Mg PO HS Review of Systems Except as stated in HPI: all other systems reviewed are Neg General / Constitutional: No: Fever Eyes: No: Visual changes HENT: Positive: Other, No: Headaches Cardiovascular: No: Chest Pain or Discomfort Respiratory: No: Shortness of Breath Gastrointestinal: No: Abdominal Pain Genitourinary: No: Dysuria Musculoskeletal: No: Pain Skin: No Rash Neurologic: No: Weakness Psychiatric: No: Depression Endocrine: No: Polydipsia Hematologic/Lymphatic: No: Easy Bruising Physical Exam Narrative GENERAL: Patient appears in no acute distress. SKIN: Warm and dry. Normal color. Normal turgor. No rash. HEAD: Atraumatic. Normocephalic. Patient has tenderness with palpation of the right TMJ. There is no signs of dental abscess. EYES: Pupils equal and round. No scleral icterus. No injection or drainage. ENT: No nasal bleeding or discharge. Mucous membranes pink and moist. Pharynx is clear. Airway is patent. NECK: Trachea midline. Supple and nontender.. CARDIOVASCULAR: Regular rate and rhythm. RESPIRATORY: No accessory muscle use. Clear to auscultation. Breath sounds equal bilaterally. MUSCULOSKELETAL: Extremities without clubbing, cyanosis, or edema. No obvious deformities. NEUROLOGICAL: Awake and alert. No obvious cranial nerve deficits. Motor grossly within normal limits. Five out of 5 muscle strength in the arms and legs. Normal speech. PSYCHIATRIC: Appropriate mood and affect; insight and judgment normal. Patient admits to suicidal ideation. Data Data Last Documented VS Vital Signs Date Time Temp Pulse Resp B/P (MAP) Pulse Ox O2 Delivery O2 Flow Rate FiO2 04/22/17 16:55 97.6 58 18 112/67 (82) 99 Room Air Orders Orders Complete Blood Count With Diff (04/22/17 15:47) Comprehensive Metabolic Panel (04/22/17 15:47) Psych Screen (04/22/17 15:47) Drug Screen, Random Urine (04/22/17 15:47) Diet Regular Basic (04/22/17 Dinner) [facility] Medical Decision Making Medical Screen Exam Complete: Yes Emergency Medical Condition: Yes Medical Record Reviewed: Yes Differential Diagnosis Depression. Suicidal ideation. Right TMJ. Narrative Course Psychiatric labs ordered per protocol. The patient is medically cleared for psychiatric evaluation. Patient is given ibuprofen 800 mg by mouth 1 for his right jaw pain. Psychiatric is ordered. Diagnosis Primary Impression: Suicidal ideation Condition: Stable Jorge Luis Cooley Apr 22, 2017 17:24
[2017-04-22] MEDS ORDERED: IBUPROFEN 800 MG TAB PO ONE (17:30)
[2017-04-22 18:07] LABS: BASOPHIL # 0.1 TH/MM3 (0-0.2); EOSINOPHIL % 0.9 % (0.0-4.0); HEMATOCRIT 41.8 % (39.0-51.0); LYMPH % 33.7 % (9.0-44.0); LYMPHOCYTE # 1.8 TH/MM3 (1.0-4.8); MEAN CELL VOLUME 94.8 FL (80.0-100.0); MEAN CORPUSCULAR HGB CONC 35.9 % (32.0-36.0); MONO % 7.7 % (0.0-8.0); MONOCYTE # 0.4 TH/MM3 (0-0.9); NEUT % 56.7 % (16.0-70.0); PLATELET COUNT 233 TH/MM3 (150-450); RED BLOOD COUNT 4.41 MIL/MM3 (4.50-5.90); RED CELL DISTRIBUTION WIDTH 13.8 % (11.6-17.2); WHITE BLOOD COUNT 5.4 TH/MM3 (4.0-11.0)
[2017-04-22 18:13] LABS: ALBUMIN 3.8 GM/DL (3.4-5.0); AST (GOT) 23 U/L (15-37); BICARBONATE 22.6 MEQ/L (21.0-32.0); BLOOD UREA NITROGEN 13 MG/DL (7-18); CALCIUM 9.3 MG/DL (8.5-10.1); CHLORIDE 107 MEQ/L (98-107); GLOMERULAR FILTRATION RATE 54 ML/MIN (>89); GLUCOSE,RANDOM 125 MG/DL (74-106); SODIUM (NA) 139 MEQ/L (136-145)
[2017-04-22 18:14] LABS: ALT (GPT) 51 U/L (12-78)
[2017-04-22 18:16] LABS: ALKALINE PHOSPHATASE 61 U/L (45-117); TOTAL PROTEIN 7.1 GM/DL (6.4-8.2)
[2017-04-22 19:56] VITALS: BP 100/55; PULSE 64; RESP 17; TEMP 98.2; O2SAT 95
[2017-04-23 00:31] VITALS: BP 107/61; PULSE 58; RESP 20; TEMP 97.1; O2SAT 97
[2017-04-23] MEDS ORDERED: diphenhydrAMINE HCL 50 MG/ML VIAL - HS PRN IM (01:30)
[2017-04-23] MEDS ORDERED: ACETAMINOPHEN 325 MG TAB PO PRN (01:30)
[2017-04-23] MEDS ORDERED: diphenhydrAMINE HCL 50 MG/ML VIAL IM PRN (01:30)
[2017-04-23] MEDS ORDERED: MAGNESIUM HYDROXIDE SUSP 30 ML CUP PO PRN (01:30)
[2017-04-23] MEDS ORDERED: LORazepam 2 MG/ML VIAL IM PRN (01:30)
[2017-04-23] MEDS ORDERED: ALUMINUM/MAGNESIUM/SIMETH 30 ML CUP PO PRN (01:30)
[2017-04-23] MEDS ORDERED: diphenhydrAMINE HCL 50 MG CAP - HS PRN PO (01:30)
[2017-04-23] MEDS ORDERED: BENZTROPINE MESYLATE 2 MG/2 ML VIAL IM PRN (01:30)
[2017-04-23] MEDS ORDERED: LORazepam 1 MG TAB PO PRN (01:30)
[2017-04-23] MEDS ORDERED: traZODone HCL 50 MG TAB PO PRN (01:30)
[2017-04-23] MEDS ORDERED: BENZTROPINE MESYLATE 1 MG TAB PO PRN (01:30)
[2017-04-23] MEDS ORDERED: diphenhydrAMINE HCL 50 MG CAP PO PRN (01:30)
[2017-04-23 02:20] VITALS: BP 112/60; PULSE 53; RESP 18; TEMP 97.4; O2SAT 97
[2017-04-23] MEDS: buPROPion HCL 150 MG SUSTAINED RELEASE TAB PO SCH ×2 (08:37→20:51)
[2017-04-23] MEDS ORDERED: FLUoxetine HCL 20 MG CAP PO SCH (09:00)
[2017-04-23] MEDS: NICOTINE 21 MG/24 HR PATCH T-DERMAL SCH (09:00)
--- NOTE | 2017-04-23 13:25 | HHI.HP ---
Provisional Diagnosis Admission Date Apr 23, 2017 at 01:11 [place] I. 1. Adjustment disorder with depressed mood 2. Cannabis use, rule out use disorder [place] II. 1. Cluster B/C personality traits Certification of Person's Competence To Provide Express and Informed Consent I have personally examined Roberto Maravilla , a person being served at [facility] on, Apr 23, 2017 13:07. Express and informed consent means consent voluntarily given in writing, by a competent person, after sufficient explanation and disclosure of the subject matter involved to enable the person to make a knowing and willful decision without any element of force, fraud, deceit, duress, or other form of constraint or coercion. This person is 18 years of age or older, is not now known to be incompetent to consent to treatment with a guardian advocate, and does not have a health care surrogate or proxy currently making medical treatment decisions. I have found this person to be one of the following: [x] Competent to provide express and informed consent, as defined above, for voluntary admission to this facility and is competent to provide express and informed consent for treatment. He/she has the consistent capacity to make well reasoned, willful, and knowing decisions concerning his or her medical or mental health treatment. The person fully and consistently understands the purpose of the admission for examination/placement and is fully capable of personally exercising all rights assured [place] Incompetent to provide express and informed consent to voluntary admission, and this is incompetent to provide express and informed consent to treatment. The person must be transferred to involuntary status and a petition for a guardian advocate filed with the Circuit Court. [] Refusing to provide express and informed consent to voluntary admission but is competent to provide express and informed consent for treatment. The person must be discharged or transferred to involuntary status. Form shall be completed within 24 hours of a person's arrival at the receiving facility and filed in the clinical record of each person: 1. Admitted on a voluntary basis 2. Permitted to provide express and informed consent to his/her own treatment 3. Allowed to transfer from involuntary to voluntary status 4. Prior to permitting a person to consent to his or her own treatment after having been previously found incompetent to consent to treatment. History of Present Illness Capacity: Has Capacity Psych Chief Complaint: depression HPI Mr. Maravilla is a 46-year-old male with a history of depression who presented to the emergency department voluntarily with complaints of suicidal ideation. The patient is treated by Dr. Hammonds on an outpatient basis and saw him last in the middle of March at which time he added Wellbutrin. Patient was also admitted under my care to the inpatient psychiatric unit at the beginning of September in 2016. Electronic medical record reviewed. Patient seen and examined with nurse. Chart reviewed. Case discussed with nursing staff. On my examination today, patient reports that he became acutely depressed on 's Diana. He complains, as he did last time, that his has a "sexual aversion" but had promised him sex on 's Diana. When she refused him then "it was the final straw." Patient says he "went to bed mad and woke up mad." His called his therapist who then spoke with patient and reportedly recommended he come in to the hospital. Patient remains dysphoric, hopeless, angry. He says that he would kill himself by overdosing on heroin because he thinks it would be a "peaceful" way to . No HI. No manic/hypomanic symptoms. Patient reports that he "saw something" yesterday but denies AVH now. He does complain of chronic tinnitus. No delusional material. Cluster B/C personality traits noted. Remainder of the psychiatric ROS is negative. He complains of constipation, no BM in 3 days but still passing flatus. No other physical complaints. PPH: Diagnosis of depression. Follows psychiatrically Dr. Hammonds and sees a Kitty Martinez for psychotherapy. He denies any interval psychiatric admissions or suicide attempts since he was admitted under my care last Summer. Review of Systems Except as stated in HPI: all other systems reviewed are Neg Past Psych History Psychological trauma history No reported trauma history to me. Violence risk - others (6 mos) Lower imminent risk. No HI. Violence risk - self (6 mos) Concern for elevated risk. Ongoing suicidal ideation with plan. Remains depressed. Substance Abuse History Drugs/Alcohol past 12 months Patient denies any abuse of drugs or alcohol. Past Family Social History Coded Allergies: No Known Allergies (Unverified Allergy, Unknown, 04/22/17) Past Medical History See electronic medical record Active Scripts Bupropion HCl ER 24 HR (Wellbutrin Xl 24 HR) 300 Mg Tab, 300 MG PO DAILY for Control Depression, #30 TAB 0 Refills Prov:Gian Hammonds MD 04/06/17 Lorazepam (Ativan) 1 Mg Tab, 1 MG PO Q8H Y for ANXIETY AND/OR AGITATION, #90 TAB 0 Refills Prov:Gian Hammonds MD 03/27/17 Fluoxetine (Prozac) 20 Mg Cap, 20 MG PO DAILY, #30 CAP 0 Refills Prov:Gian Hammonds MD 03/27/17 Reported Medications Trazodone (Trazodone) 50 Mg Tab, 50 MG PO HS for Control Depression, #30 TAB 0 Refills 04/22/17 Discontinued Reported Medications Oxcarbazepine (Oxcarbazepine) 150 Mg Tab, 150 MG PO DAILY for Seizure Control, # 30 TAB 0 Refills 03/23/17 Desvenlafaxine (Desvenlafaxine ER) 50 Mg Tab.er.24h, 50 MG DAILY 03/23/17 Discontinued Scripts Bupropion HCl ER 24 HR (Wellbutrin Xl 24 HR) 150 Mg Tab, 150 MG PO DAILY for Control Depression, #30 TAB 0 Refills Prov:Gian Hammonds MD 04/06/17 Current Medications Medications (Trade) Dose Ordered Sig/Jud Route Start Time Stop Time Status Last Admin (Ativan) 1 mg Q6H PRN PO 04/23/17 01:30 04/23/17 02:38 (Ativan Inj) 1 mg Q6H PRN IM 04/23/17 01:30 (Atarax) 50 mg Q6H PRN PO 04/23/17 01:30 (Benadryl) 50 mg Q6H PRN PO 04/23/17 01:30 (Benadryl Inj) 50 mg Q6H PRN IM 04/23/17 01:30 (Cogentin) 1 mg Q12H PRN PO 04/23/17 01:30 (Cogentin Inj) 1 mg Q12H PRN IM 04/23/17 01:30 (Benadryl) 50 mg HS PRN PO 04/23/17 01:30 (Benadryl Inj) 50 mg HS PRN IM 04/23/17 01:30 (Desyrel) 50 mg HS PRN PO 04/23/17 01:30 04/23/17 02:38 (Tylenol) 650 mg Q4H PRN PO 04/23/17 01:30 (Milk Of Magnesia Liq) 30 ml DAILY PRN PO 04/23/17 01:30 (Mag-Al Plus Susp Liq) 30 ml Q6H PRN PO 04/23/17 01:30 (Habitrol 21 Mg Patch.24 Hr) 1 patch DAILY T-DERMAL 04/23/17 09:00 Miscellaneous Information 1 HS T-DERMAL 04/23/17 21:00 (PROzac) 20 mg DAILY PO 04/23/17 09:00 04/23/17 08:37 (Wellbutrin Sr) 150 mg BID PO 04/23/17 09:00 04/23/17 08:37 (Desyrel) 50 mg HS PO 04/23/17 21:00 (Pneumovax-23 Inj) 25 mcg ONCE ONCE IM 04/24/17 09:00 04/24/17 09:01 Family Psych History Unchanged from previous assessment in September 2016 Social History Patient reports that he has been disabled for the last 3 months. His relationship with his remains strained. He denies any access to guns or firearms. Otherwise unchanged from initial assessment in September 2016. Patient's Strengths (min. 2) In a monitored setting. Verbally fluent. Physical Exam Physical exam completed by ED provider. On my examination today, patient appears to be in no acute physical distress. No motoric abnormalities noted. Labs and vitals reviewed: Vital Signs Vital Signs Date Time Temp Pulse Resp B/P (MAP) Pulse Ox O2 Delivery O2 Flow Rate FiO2 04/23/17 02:20 97.4 53 18 112/60 (77) 97 04/23/17 00:31 Room Air Lab Results Test 04/22/17 16:05 04/22/17 18:25 White Blood Count 5.4 TH/MM3 Red Blood Count 4.41 MIL/MM3 Hemoglobin 15.0 GM/DL Hematocrit 41.8 % Mean Corpuscular Volume 94.8 FL Mean Corpuscular Hemoglobin 34.0 PG Mean Corpuscular Hemoglobin Concent 35.9 % Red Cell Distribution Width 13.8 % Platelet Count 233 TH/MM3 Mean Platelet Volume 9.0 FL Neutrophils (%) (Auto) 56.7 % Lymphocytes (%) (Auto) 33.7 % Monocytes (%) (Auto) 7.7 % Eosinophils (%) (Auto) 0.9 % Basophils (%) (Auto) 1.0 % Neutrophils # (Auto) 3.0 TH/MM3 Lymphocytes # (Auto) 1.8 TH/MM3 Monocytes # (Auto) 0.4 TH/MM3 Eosinophils # (Auto) 0.0 TH/MM3 Basophils # (Auto) 0.1 TH/MM3 CBC Comment DIFF FINAL Differential Comment Blood Urea Nitrogen 13 MG/DL Creatinine 1.40 MG/DL Random Glucose 125 MG/DL Total Protein 7.1 GM/DL Albumin 3.8 GM/DL Calcium Level 9.3 MG/DL Alkaline Phosphatase 61 U/L Aspartate Amino Transf (AST/SGOT) 23 U/L Alanine Aminotransferase (ALT/SGPT) 51 U/L Total Bilirubin 1.0 MG/DL Sodium Level 139 MEQ/L Potassium Level 3.9 MEQ/L Chloride Level 107 MEQ/L Carbon Dioxide Level 22.6 MEQ/L Anion Gap 9 MEQ/L Estimat Glomerular Filtration Rate 54 ML/MIN Urine Opiates Screen NEG Urine Barbiturates Screen NEG Urine Amphetamines Screen NEG Urine Benzodiazepines Screen NEG Urine Cocaine Screen NEG Urine Cannabinoids Screen POS Mildly decreased GFR. Toxicology positive for cannabinoids. Otherwise unremarkable. Mental Status Examination Appearance: Appropriate Consciousness: Alert Orientation: x4 Motor Activity: Other (no motor abnormalities noted) Speech: Unremarkable Language: Adequate Fund of Knowledge: Adequate Attention and Concentration: Adequate Memory: Unremarkable (grossly intact on clinical exam) Mood: Other (dysphoric) Affect: Other (restricted) Thought Process & Associations: Intact, Linear Thought Content: Other (rumination) Hallucination Type: None Delusion Type: None Suicidal Ideation: Yes Suicidal Plan: Yes (overdose on heroin) Suicidal Intention: No Homicidal Ideation: No Homicidal Plan: No Homicidal Intention: No Insight: Fair Judgment: Impulsive Assessment & Plan Problem List: (1) Adjustment disorder with depressed mood ICD Codes: F43.21 - Adjustment disorder with depressed mood (2) Use of cannabis ICD Codes: F12.90 - Cannabis use, unspecified, uncomplicated Status: Acute Assessment & Plan 46-year-old male with psychiatric history as detailed above who presents voluntarily for psychiatric admission. On my examination today, the patient reports acute worsening of mood after spurned his sexual advances New Year's Diana. He now wishes to overdose on heroin but does not describe any urge to hurt himself on the inpatient unit. I suspect significant component of adjustment reaction overlying a broader mood disorder, possibly with some personality dysfunction along cluster B/C. We discuss pharmacotherapeutic options at this point for patient's depression and settle on titration of Prozac. Patient requires psychiatric hospitalization at this time for safety, observation and stabilization. Admit inpatient. Voluntary status. Titrate Prozac to 40 mg daily. Continue Wellbutrin as ordered. Atarax as needed for anxiety, Cogentin as needed for EPS , Benadryl as needed for sleep. Vitals every shift. Counselor to see and obtain collateral. Patient also requests that I reach out to his psychotherapist, and I have asked the nurse to obtain the contact information and release of information. Disposition planning. Estimated length of stay: 5- 7 days. Discharge Planning Pending psychiatric stabilization Request HC Surrog/Guard Advoc?: No Filemon Fernandez MD Apr 23, 2017 13:25
[2017-04-23] MEDS ORDERED: BISACODYL EC 5 MG TABEC PO PRN (16:15)
[2017-04-23 16:47] VITALS: BP 108/65; PULSE 51; RESP 17; TEMP 99.4; O2SAT 99
[2017-04-23] MEDS: traZODone HCL 50 MG TAB PO SCH (20:51)
[2017-04-23] MEDS: DOCUSATE SODIUM 100 MG CAP PO SCH (20:51)
[2017-04-23] MEDS: REMOVE OLD NICOTINE PATCH T-DERMAL SCH (21:00)
[2017-04-24 05:57] VITALS: BP 110/58; PULSE 56; RESP 16; TEMP 97.9; O2SAT 96
[2017-04-24] MEDS ORDERED: PNEUMOCOCCAL POLYVALENT INJ 25 MCG/0.5 ML SYR IM ONE (09:00)
[2017-04-24] MEDS: NICOTINE 21 MG/24 HR PATCH T-DERMAL SCH (09:00)
[2017-04-24] MEDS: FLUoxetine HCL 20 MG CAP PO SCH (09:20)
[2017-04-24] MEDS: DOCUSATE SODIUM 100 MG CAP PO SCH ×2 (09:21→20:50)
[2017-04-24] MEDS: buPROPion HCL 150 MG SUSTAINED RELEASE TAB PO SCH ×2 (09:21→20:50)
--- NOTE | 2017-04-24 10:30 | HHI.PYPN ---
Subjective Chief Complaint: depression Remarks Patient seen and examined with counselor and nurse. Chart reviewed. Case discussed with nurse and in treatment team with counselor and occupational therapist. On my examination today, the patient seems to be less acutely distressed. He says that he spoke with his last night and the two have moved forward with plans for a separation. He feels that this will be for the best. He does plan to remain temporarily in the same house, residing in the lower level while occupies upper level. Denies any active suicidal ideation at this time. Denies side effects from medications. No physical complaints. Spoke with patient's psychotherapist, Lanie Piña, at [phone]. She notes that the patient has been increasingly depressed over the last 2 months or so, to such a degree that mood was interfering with psychotherapeutic work. She encouraged patient to work with outpatient psychiatrist on pharmacologic intervention, and she reports some decreased obsessionality with recent med changes. She notes he has been spending a lot of time on his computer as a form of escape. She relates that he has articulated angry thoughts in session but no specific violent ideations. She would be agreeable to seeing the patient more frequently if he is willing, and she will tentatively reserve a spot on 04/30 at 3pm for the patient. I will plan to call Ms. Piña after weekend to confirm whether patient is likely to be discharged in time to make this appointment. Review of Systems Except as stated in HPI: all other systems reviewed are Neg Mental Status Examination Appearance: Appropriate Consciousness: Alert Orientation: x4 Motor Activity: Other (no motor abnormalities noted) Speech: Unremarkable Language: Adequate Fund of Knowledge: Adequate Attention and Concentration: Adequate Memory: Unremarkable Mood: Other (less dysphoric today) Affect: Other (restricted) Thought Process & Associations: Intact, Linear Thought Content: Other (rumination decreased) Hallucination Type: None Delusion Type: None Suicidal Ideation: No Suicidal Plan: No Suicidal Intention: No Homicidal Ideation: No Homicidal Plan: No Homicidal Intention: No Insight: Fair Judgment: Impulsive Results Labs Labs reviewed. Renal function stable. Lipid panel unremarkable. Vitals/IOs Vital Signs Date Time Temp Pulse Resp B/P (MAP) Pulse Ox O2 Delivery O2 Flow Rate FiO2 04/24/17 05:57 97.9 56 16 110/58 (75) 96 04/23/17 00:31 Room Air Assessment & Plan Problem List: (1) Adjustment disorder with depressed mood ICD Codes: F43.21 - Adjustment disorder with depressed mood (2) Use of cannabis ICD Codes: F12.90 - Cannabis use, unspecified, uncomplicated Status: Acute Assessment & Plan Continue Prozac 40 mg daily. We might consider further titrating this agent into anti-obsessional doses as outpatient psychotherapist has identified obsessionality/rumination as an issue for the patient. Continue Wellbutrin as ordered. Transfer to lower acuity unit as this is more appropriate the patient' s current level of function. Hospitalist input noted and appreciated. Continue other medications and care as ordered. Justification for Cont. Inpt. Monitoring for impairment in safety. Anticipated medication changes. Discharge Planning Pending stabilization. Request HC Surrog/Guard Advoc?: No Filemon Fernandez MD Apr 24, 2017 10:30
[2017-04-24 10:34] LABS: BICARBONATE 29.3 MEQ/L (21.0-32.0); BLOOD UREA NITROGEN 15 MG/DL (7-18); CALCIUM 9.3 MG/DL (8.5-10.1); CHLORIDE 107 MEQ/L (98-107); CHOLESTEROL 132 MG/DL (120-200); GLUCOSE,RANDOM 93 MG/DL (74-106); SODIUM (NA) 143 MEQ/L (136-145); TRIGLYCERIDES 97 MG/DL (42-150)
[2017-04-24 10:36] LABS: CHOLESTEROL/ HDL RATIO 3.05 RATIO; CREATININE 1.34 MG/DL (0.60-1.30); GLOMERULAR FILTRATION RATE 57 ML/MIN (>89); HDL CHOLESTEROL 43.2 MG/DL (40.0-60.0); LDL CHOLESTEROL 69 MG/DL (0-99)
[2017-04-24] MEDS ORDERED: NICOTINE 21 MG/24 HR PATCH T-DERMAL PRN (13:15)
--- NOTE | 2017-04-24 13:53 | PD.TTN ---
Patient Problems 1. Discharge planning 2. Medication compliance 3. Knowledge deficit 4. Lack of coping skills Progress Toward Goals Provider Present: Dr. Rebecca Fernandez Provider Input: Pt medication regiment continues to be evaluated including titration of his Prozac. Nurse(s) Present: Nerissa Arteaga, RN Nurse(s) Input: Pt denied any suicidal ideation today, appears motivated, goal oriented, took his medication and slept well. Psychiatric Counselors Present: JANICE Velasco Psych Therapist Input: Pt continues to appear somewhat depressed and overwhelmed by his stressors. Pt appears to be utilizing some level of coping and emotional regulation skills to manage his distress. Insight into condition and need for care appeared fair. Pt is medication compliant and believes it is helping him. He states he will return home and will be following up with Dr. Polo. Group Spec/RT/OT/LÓPEZ Present: MARIBEL Raza Group Spec/RT/OT/LÓPEZ Input: Pt does not attend groups. Discharge Plan Pt will be discharged home and will follow up with Dr. Polo for outpatient psychiatric services as well as his private therapist. Documentation Scribe: JANICE Velasco Jonathan LMHC Apr 24, 2017 13:53
[2017-04-24 17:42] LABS: HEMOGLOBIN A1C 4.5 % (4.3-6.0)
[2017-04-24 18:16] VITALS: BP 105/57; PULSE 52; RESP 18; TEMP 97.9; O2SAT 95
[2017-04-24] MEDS: traZODone HCL 50 MG TAB PO SCH (20:50)
[2017-04-24] MEDS: REMOVE OLD NICOTINE PATCH T-DERMAL SCH (20:52)
[2017-04-25 05:42] VITALS: BP 104/60; PULSE 57; RESP 17; TEMP 98.2; O2SAT 96
[2017-04-25] MEDS: FLUoxetine HCL 20 MG CAP PO SCH (08:20)
[2017-04-25] MEDS: DOCUSATE SODIUM 100 MG CAP PO SCH ×2 (08:21→21:38)
[2017-04-25] MEDS: buPROPion HCL 150 MG SUSTAINED RELEASE TAB PO SCH ×2 (08:21→21:38)
[2017-04-25] MEDS: hydrOXYzine HCL 50 MG TAB PO PRN (09:21)
--- NOTE | 2017-04-25 14:45 | HHI.PYPN ---
Subjective Chief Complaint: depression Remarks Patient was seen and case discussed with nursing. Patient is pleasant and cooperative with exam. Describes various life stressors leading to increased depression. This includes a pending divorce from his , stressors at work. We discussed various aspects of his medications. He has passive suicidal thoughts with no intent or plan. Protective factors include his children. Complaining of poor sleep Mental Status Examination Appearance: Appropriate Consciousness: Alert Orientation: x4 Motor Activity: Other (no motor abnormalities noted) Speech: Unremarkable Language: Adequate Fund of Knowledge: Adequate Attention and Concentration: Adequate Memory: Unremarkable Mood: Other (less dysphoric today) Affect: Other (restricted) Thought Process & Associations: Intact, Linear Thought Content: Other (rumination decreased) Hallucination Type: None Delusion Type: None Suicidal Ideation: Yes (passive, fleeting) Suicidal Plan: No Suicidal Intention: No Homicidal Ideation: No Homicidal Plan: No Homicidal Intention: No Insight: Fair Judgment: Impulsive Results Vitals/IOs Vital Signs Date Time Temp Pulse Resp B/P (MAP) Pulse Ox O2 Delivery O2 Flow Rate FiO2 04/25/17 05:42 98.2 57 17 104/60 (75) 96 04/23/17 00:31 Room Air Assessment & Plan Problem List: (1) Adjustment disorder with depressed mood ICD Codes: F43.21 - Adjustment disorder with depressed mood (2) Use of cannabis ICD Codes: F12.90 - Cannabis use, unspecified, uncomplicated Status: Acute Assessment & Plan DC Benadryl, start trazodone 50 mg by mouth daily at bedtime Justification for Cont. Inpt. Patient would decompensate in a less restrictive setting Request HC Surrog/Guard Advoc?: No Charlie Hicks DO Apr 25, 2017 14:45
[2017-04-25 18:16] VITALS: BP 117/59; PULSE 57; RESP 17; TEMP 97.9; O2SAT 96
[2017-04-25] MEDS: REMOVE OLD NICOTINE PATCH T-DERMAL SCH (21:00)
[2017-04-25] MEDS: traZODone HCL 50 MG TAB PO SCH (21:38)
[2017-04-26 05:12] VITALS: BP 113/60; PULSE 58; RESP 16; TEMP 97.9; O2SAT 96
[2017-04-26] MEDS: hydrOXYzine HCL 50 MG TAB PO PRN (08:06)
[2017-04-26] MEDS: buPROPion HCL 150 MG SUSTAINED RELEASE TAB PO SCH ×2 (08:06→21:23)
[2017-04-26] MEDS: FLUoxetine HCL 20 MG CAP PO SCH (08:06)
[2017-04-26] MEDS: DOCUSATE SODIUM 100 MG CAP PO SCH ×2 (08:06→21:23)
--- NOTE | 2017-04-26 13:10 | HHI.PYPN ---
Subjective Chief Complaint: depression Remarks Patient was seen and case discussed with nursing. Patient's mood has improved after resolving some of his marital issues. He met with his for 2 hours and they decided they would give it another chance. We discussed marital therapy after discharge. Remains stressed about unemployment. Affect is constricted. Denies suicidal or homicidal ideation intent or plan. Sleeping is improved Mental Status Examination Appearance: Appropriate Consciousness: Alert Orientation: x4 Motor Activity: Other (no motor abnormalities noted) Speech: Unremarkable Language: Adequate Fund of Knowledge: Adequate Attention and Concentration: Adequate Memory: Unremarkable Mood: Sad, Other (less dysphoric today) Affect: Blunt Thought Process & Associations: Intact, Linear Thought Content: Other (rumination decreased) Hallucination Type: None Delusion Type: None Suicidal Ideation: No Suicidal Plan: No Suicidal Intention: No Homicidal Ideation: No Homicidal Plan: No Homicidal Intention: No Insight: Fair Judgment: Impulsive Results Vitals/IOs Vital Signs Date Time Temp Pulse Resp B/P (MAP) Pulse Ox O2 Delivery O2 Flow Rate FiO2 04/26/17 05:12 97.9 58 16 113/60 (77) 96 04/23/17 00:31 Room Air Assessment & Plan Problem List: (1) Adjustment disorder with depressed mood ICD Codes: F43.21 - Adjustment disorder with depressed mood (2) Use of cannabis ICD Codes: F12.90 - Cannabis use, unspecified, uncomplicated Status: Acute Assessment & Plan Continue current treatment plan Justification for Cont. Inpt. Patient will decompensate in a less restrictive setting Request HC Surrog/Guard Advoc?: No Charlie Hicks DO Apr 26, 2017 13:10
[2017-04-26 15:59] VITALS: BP 106/58; PULSE 46; RESP 18; TEMP 98; O2SAT 97
[2017-04-26] MEDS: REMOVE OLD NICOTINE PATCH T-DERMAL SCH (21:00)
[2017-04-26] MEDS: traZODone HCL 50 MG TAB PO SCH (21:23)
[2017-04-27 06:28] VITALS: BP 108/64; PULSE 55; RESP 16; TEMP 98; O2SAT 97
[2017-04-27] MEDS: FLUoxetine HCL 20 MG CAP PO SCH (08:24)
[2017-04-27] MEDS: DOCUSATE SODIUM 100 MG CAP PO SCH ×2 (08:24→21:59)
[2017-04-27] MEDS: buPROPion HCL 150 MG SUSTAINED RELEASE TAB PO SCH ×2 (08:24→21:59)
--- NOTE | 2017-04-27 14:13 | HHI.PYPN ---
Subjective Chief Complaint: depression Remarks Patient seen and examined with nurse. Chart reviewed. Case discussed with nursing staff. On my examination today, patient complains of anxiety, chiefly social anxiety, which works itself out as irritability and anger. The patient reports that this is a chronic issue for the patient but is particularly acute on the inpatient unit due to the high degree of socialization required to participate in unit activities. No SI or HI. Does endorse sleep disturbance due to ruminative anxiety and complains of rumination generally as had been described by his psychotherapist. We discussed pharmacologic options for management of residual symptoms and settle on titration of his Prozac. Denies side effects from medications. No physical complaints. Review of Systems Except as stated in HPI: all other systems reviewed are Neg Mental Status Examination Appearance: Appropriate Consciousness: Alert Orientation: x4 Motor Activity: Normal gait, Other (no motoric abnormalities noted) Speech: Unremarkable Language: Adequate Fund of Knowledge: Adequate Attention and Concentration: Adequate Memory: Unremarkable Mood: Anxious Affect: Anxious Thought Process & Associations: Intact, Logical, Linear Thought Content: Other (continues to complain of some rumination) Hallucination Type: None Delusion Type: None Suicidal Ideation: No Suicidal Plan: No Suicidal Intention: No Homicidal Ideation: No Homicidal Plan: No Homicidal Intention: No Insight: Fair Judgment: Adequate (fair) Results Labs Labs reviewed. No new labs. Vitals/IOs Vital Signs Date Time Temp Pulse Resp B/P (MAP) Pulse Ox O2 Delivery O2 Flow Rate FiO2 04/27/17 06:28 98.0 55 16 108/64 (79) 97 Intake and Output 04/27/17 04/27/17 04/28/17 08:00 16:00 00:00 Intake Total 240 ml 240 ml Balance 240 ml 240 ml Assessment & Plan Problem List: (1) Adjustment disorder with depressed mood ICD Codes: F43.21 - Adjustment disorder with depressed mood (2) Use of cannabis ICD Codes: F12.90 - Cannabis use, unspecified, uncomplicated Status: Acute Assessment & Plan Titrate Prozac to 60 mg daily. Continue to monitor on an inpatient unit. Continue other medications and care as ordered. Patient agreeable to following up with psychotherapist on as suggested. Justification for Cont. Inpt. Medication changes. Discharge Planning Anticipate discharge tomorrow, Thursday Request HC Surrog/Guard Advoc?: No Filemon Fernandez MD Apr 27, 2017 14:13
[2017-04-27] MEDS ORDERED: FLUoxetine HCL 20 MG CAP PO ONE (14:15)
[2017-04-27 18:19] VITALS: BP_SYST 106; BP_SYST 110; BP_DIAS 62; BP_DIAS 64; PULSE 55; PULSE 91; RESP 15; RESP 17; TEMP 98; TEMP 98.3; O2SAT 96; O2SAT 97
[2017-04-27] MEDS: REMOVE OLD NICOTINE PATCH T-DERMAL SCH (21:00)
[2017-04-27] MEDS: traZODone HCL 50 MG TAB PO SCH (21:59)
[2017-04-28 06:01] VITALS: BP 102/62; PULSE 58; RESP 16; TEMP 97.9; O2SAT 97
[2017-04-28] MEDS ORDERED: FLUoxetine HCL 20 MG CAP PO SCH (09:00)
[2017-04-28] MEDS ORDERED: TRAZ50TA12 PO (09:39)
[2017-04-28] MEDS ORDERED: FLUO20CA12 PO (09:39)
[2017-04-28] MEDS ORDERED: DOCU1CAP39 PO (09:39)
--- NOTE | 2017-04-28 09:40 | HHI.DS ---
Psychiatry Discharge Summary Inpatient Psychiatric care?: Yes Advance Directive: No Reason Not Provided: UNAVALIBLE Mental Health AdvanceDirective: No Health Care Proxy: No Admission Admission Date Apr 23, 2017 at 01:11 Admission Diagnosis: (1) Adjustment disorder with depressed mood ICD Code: F43.21 - Adjustment disorder with depressed mood (2) Use of cannabis ICD Code: F12.90 - Cannabis use, unspecified, uncomplicated Brief History Mr. Maravilla is a 46-year-old male with a history of depression who presented to the emergency department voluntarily with complaints of suicidal ideation. The patient is treated by Dr. Hammonds on an outpatient basis and saw him last in the middle of March at which time he added Wellbutrin. Patient was also admitted under my care to the inpatient psychiatric unit at the beginning of September in 2016. Electronic medical record reviewed. Patient seen and examined with nurse. Chart reviewed. Case discussed with nursing staff. On my examination today, patient reports that he became acutely depressed on 's Diana. He complains, as he did last time, that his has a "sexual aversion" but had promised him sex on 's Diana. When she refused him then "it was the final straw." Patient says he "went to bed mad and woke up mad." His called his therapist who then spoke with patient and reportedly recommended he come in to the hospital. Patient remains dysphoric, hopeless, angry. He says that he would kill himself by overdosing on heroin because he thinks it would be a "peaceful" way to . No HI. No manic/hypomanic symptoms. Patient reports that he "saw something" yesterday but denies AVH now. He does complain of chronic tinnitus. No delusional material. Cluster B/C personality traits noted. Remainder of the psychiatric ROS is negative. He complains of constipation, no BM in 3 days but still passing flatus. No other physical complaints. PPH: Diagnosis of depression. Follows psychiatrically Dr. Hammonds and sees a Kitty Martinez for psychotherapy. He denies any interval psychiatric admissions or suicide attempts since he was admitted under my care last Summer. Tobacco Use In Past 30 Days: No Tobacco Past 30 Days Alcohol Use: Monthly or Less Hospital Course Patient was admitted to a locked, inpatient psychiatric unit. Appropriate precautions were in place throughout patient's hospital stay. Patient was seen and examined on the unit by psychiatry and also visited by counselor. Psychotropic medications were adjusted. Patient tolerated medication changes well without side effects. There was no evidence of any suicidality or homicidality on the inpatient unit. The patient remained in good behavioral control. Collateral was obtained from the patient's psychotherapist and follow- up care was psychotherapist was arranged. On the day of discharge: Patient seen and examined. Chart reviewed. Patient eating and sleeping well. He is medication compliant. Nursing notes suggest some irritability overnight but no issues with behavioral disturbance. Case discussed in treatment team. On my examination today, patient requests discharge from the inpatient psychiatric unit today. He denies any suicidal or homicidal ideation, intent or plan on direct questioning and contracts for safety. Mood and anxiety are reportedly improved versus admission, and I can elicit no severe depressive or hypomanic/ manic symptoms in this patient at this time. The patient reports that his irritability overnight was prompted by the stress of being on the inpatient unit , and he feels that he would not have this issue at home. He denies any audiovisual hallucinations. I can elicit no delusional material. There is no evidence of any impairment in reality construction. He reports that he has spoken with his , and they have worked out a productive way forward in their marital difficulties, and this is a significant relief for him. He denies side effects from medications. He has no physical complaints. He is agreeable to following up with outpatient psychiatry and with his psychotherapist. Suicide and violence risk assessment on day of discharge both suggest lower imminent risk, and the patient's level of function is adequate for outpatient care. Patient does not meet criteria for involuntary psychiatric hospitalization. He is requesting discharge from the inpatient psychiatric unit today, and I have no basis to retain him over his objection. The patient will be discharged home today with psychiatric follow-up as arranged by counselor. Patient is also to follow-up with primary care. I have reminded the patient to return to the psychiatric emergency room for any concerning psychiatric symptoms. Patient is requesting [place] paperwork be completed for his employer; he will have his fax this to my office today or tomorrow. I have explained to patient that I will review such paperwork and complete as appropriate for the duration of his hospital stay only, and any request for leave outside of the period from admission to discharge should be routed to outpatient providers. Patient understands and agrees to these stipulations. Results Blood Pressure 102 / 62 Vital Signs Date Time Temp Pulse Resp B/P (MAP) Pulse Ox O2 Delivery O2 Flow Rate FiO2 04/28/17 06:01 97.9 58 16 102/62 (75) 97 Laboratory Results Test 04/24/17 09:48 Cholesterol Level 132 MG/DL (120-200) HDL Cholesterol 43.2 MG/DL (40.0-60.0) Hemoglobin A1c 4.5 % (4.3-6.0) LDL Cholesterol 69 MG/DL (0-99) Triglycerides Level 97 MG/DL (42-150) Summary of Procedures None done Imaging None done Pending results at discharge: No Medications # of Antipsychotic meds at D/C: 0 Approp Antipsych med options 1 - Minimum of three failed multiple trials of monotherapy. 2 - Documented plan to taper to monotherapy due to previous use of multiple meds OR cross-taper in progress at D/C. 3 - Documentation of augmentation of Clozapine. 4 - Justification other than those listed in allowable values 1-3, document here : Discharge Discharge Date: Apr 28, 2017 Discharge Diagnosis: (1) Adjustment disorder with depressed mood Diagnosis: Principal (resolved) ICD Code: F43.21 - Adjustment disorder with depressed mood (2) Use of cannabis Diagnosis: Secondary ICD Code: F12.90 - Cannabis use, unspecified, uncomplicated Status: Acute Pt Condition on Discharge: Stable Discharge Disposition: Discharge Home Discharge Instructions Diet Instructions: As Tolerated, No Restrictions Activities you can perform: Weight Bearing as Michael Scheduled Appointment: as per counselor's notes New Orders: BASIC METABOLIC PROF - 1 Week New Medications: Docusate Sodium (Dok) 100 Mg Cap 100 MG PO BID for Constipation for 15 Days, #30 CAP 1 Refill Fluoxetine (Fluoxetine) 20 Mg Capsule 60 MG PO DAILY for Mental Health for 15 Days, #45 CAP 1 Refill Trazodone (Trazodone) 50 Mg Tab 100 MG PO HS for INSOMNIA for 1 Day, TAB 0 Refills Order is to update dose only. Pt has adequate supply at home. Continued Medications: Bupropion HCl ER 24 HR (Wellbutrin Xl 24 HR) 300 Mg Tab 300 MG PO DAILY for Control Depression, #30 TAB 0 Refills Discontinued Medications: Fluoxetine (Prozac) 20 Mg Cap 20 MG PO DAILY, #30 CAP 0 Refills Lorazepam (Ativan) 1 Mg Tab 1 MG PO Q8H PRN for ANXIETY AND/OR AGITATION, #90 TAB 0 Refills Trazodone (Trazodone) 50 Mg Tab 50 MG PO HS for Control Depression, #30 TAB 0 Refills Discharge Time > 30 minutes Mental Status Examination Appearance: Appropriate Consciousness: Alert Orientation: x4 Motor Activity: Normal gait, Other (No abnormal motor movements noted.) Speech: Unremarkable Language: Adequate Fund of Knowledge: Adequate Attention and Concentration: Adequate Memory: Unremarkable Mood: Appropriate, Other (Improved versus admission) Affect: Appropriate Thought Process & Associations: Intact, Logical, Goal directed, Linear Thought Content: Appropriate (No rumination reported today) Hallucination Type: None Delusion Type: None Suicidal Ideation: No Suicidal Plan: No Suicidal Intention: No Homicidal Ideation: No Homicidal Plan: No Homicidal Intention: No Insight: Fair Judgment: Adequate (fair) Discharge/Advance Care Plan Health Problems: (1) Adjustment disorder with depressed mood (2) Use of cannabis Goals to promote your health * To prevent worsening of your condition and complications * To maintain your health at the optimal level Directions to meet your goals Take your medications as prescribed Follow your dietary instruction Follow activity as directed Keep your appointments as scheduled Take your immunizations and boosters as scheduled If your symptoms worsen call your PCP, if no PCP go to Urgent Care Center or Emergency Room For 24/ questions related to your inpatient stay or results of tests pending at discharge, please contact Dr. Filemon Fernandez at Smoking is Dangerous to Your Health. Avoid second hand smoking Filemon Fernandez MD Apr 28, 2017 09:40
--- NOTE | 2017-04-28 09:41 | HHI.PYPN ---
Subjective Chief Complaint: depression Mental Status Examination Appearance: Appropriate Consciousness: Alert Orientation: x4 Motor Activity: Normal gait, Other (no motoric abnormalities noted) Speech: Unremarkable Language: Adequate Fund of Knowledge: Adequate Attention and Concentration: Adequate Memory: Unremarkable Mood: Anxious Affect: Anxious Thought Process & Associations: Intact, Logical, Linear Thought Content: Other (continues to complain of some rumination) Hallucination Type: None Delusion Type: None Suicidal Ideation: No Suicidal Plan: No Suicidal Intention: No Homicidal Ideation: No Homicidal Plan: No Homicidal Intention: No Insight: Fair Judgment: Adequate (fair) Results Vitals/IOs Vital Signs Date Time Temp Pulse Resp B/P (MAP) Pulse Ox O2 Delivery O2 Flow Rate FiO2 04/28/17 06:01 97.9 58 16 102/62 (75) 97 Assessment & Plan Problem List: (1) Adjustment disorder with depressed mood ICD Codes: F43.21 - Adjustment disorder with depressed mood (2) Use of cannabis ICD Codes: F12.90 - Cannabis use, unspecified, uncomplicated Status: Acute Assessment & Plan Estimated LOS: days Request HC Surrog/Guard Advoc?: No Filemon Fernandez MD Apr 28, 2017 09:41
[2017-04-28] MEDS: DOCUSATE SODIUM 100 MG CAP PO SCH (09:44)
[2017-04-28] MEDS: buPROPion HCL 150 MG SUSTAINED RELEASE TAB PO SCH (09:44)
--- NOTE | 2017-04-28 12:37 | PD.TTN ---
Patient Problems 1. Discharge planning 2. Medication compliance 3. Knowledge deficit 4. Lack of coping skills Progress Toward Goals Provider Present: Dr. Rebecca Fernandez Provider Input: Pt medication regiment continues to be evaluated including titration of his Prozac. 04/28- Pt is being discharged home today. Nurse(s) Present: Nerissa Arteaga, SANG Nurse(s) Input: Pt denied any suicidal ideation today, appears motivated, goal oriented, took his medication and slept well. Psychiatric Counselors Present: JANICE Velasco Psych Therapist Input: Pt continues to appear somewhat depressed and overwhelmed by his stressors. Pt appears to be utilizing some level of coping and emotional regulation skills to manage his distress. Insight into condition and need for care appeared fair. Pt is medication compliant and believes it is helping him. He states he will return home and will be following up with Dr. Polo. 04/28- Pt is being discharged home today and will be linked with outpatient follow up services. Group Spec/RT/OT/LÓPEZ Present: MARIBEL Raza Group Spec/RT/OT/LÓPEZ Input: Pt does not attend groups. Discharge Plan Pt will be discharged home and will follow up with Dr. Hammonds for outpatient psychiatric services as well as his private therapist. Documentation Scribe: JANICE Velasco Jonathan LMHC Apr 28, 2017 12:37
[2017-05-01] MEDS ORDERED: ABIL5TAB14 PO (16:05)
[2017-05-01] MEDS ORDERED: TRAZ50TA12 PO (16:05)
[2017-05-01] MEDS ORDERED: WELLTAB39 PO (16:05)
[2017-05-01] MEDS ORDERED: FLUO20CA12 PO (16:05)
== END 2017-04-28 16:30 | disposition home or self-care (01) | DRG 881 ==
LOC: NEPJ 15:28 → NEDA 04-23 01:11 → H270 04-23 02:10 → H260 04-24 13:40
PROVIDERS: ADMIT Psychiatry & Neurology Psychiatry; ATTEND Psychiatry & Neurology Psychiatry
DX: F43.21 Adjustment disorder with depressed mood (principal); R45.851 Suicidal ideations; F12.90 Cannabis use, unspecified, uncomplicated; F31.9 Bipolar disorder, unspecified; F40.10 Social phobia, unspecified; F43.10 Post-traumatic stress disorder, unspecified; K59.00 Constipation, unspecified; H93.19 Tinnitus, unspecified ear; R68.84 Jaw pain
CPT/HCPCS: 80048; 80053; 80061; 80307; 83036; 85025; 99285